=== PATIENT | female | born 1965 | race Hispanic/Latino ===

== ENCOUNTER 2017-10-17 20:50 | Emergency (ER) | payer MEDICARE ==
[2017-10-17] MEDS ORDERED: ONDANSETRON HCL MDV 20ML 2 MG/ML VIAL ONE (20:59)
[2017-10-17] MEDS ORDERED: SODIUM CHLORIDE 0.9% 1000ML 1,000 ML IV ONE (20:59)
[2017-10-17 21:08] LABS: BASOPHILS % (AUTO) 0.4 % (0.0-5.0); HEMATOCRIT 36.5 % (36-48); LYMPHOCYTES % (AUTO) 38.4 % (21.0-51.0); MEAN CORPUSCULAR HEMOGLOBIN 30.6 pg (27.0-33.0); MEAN CORPUSCULAR HGB CONC 34.8 g/dL (32.0-36.0); MONOCYTES % (AUTO) 7.4 % (3.0-13.0); NEUTROPHILS % (AUTO) 52.8 % (40.0-77.0); PLATELET COUNT (AUTO) 250 K/uL (130-400); RED BLOOD CELL COUNT(AUTO) 4.15 MIL/uL (4.00-5.50); RED CELL DISTRIBUTION WIDTH 13.7 % (11.0-15.5)
[2017-10-17 21:16] LABS: CREATININE 0.7 mg/dL (0.5-1.5); POTASSIUM 3.1 mmol/L (3.5-5.1)
[2017-10-17 21:21] LABS: ALBUMIN 3.7 g/dL (3.5-5.0); BILIRUBIN,TOTAL 0.2 mg/dL (0.2-1.0); TOTAL PROTEIN, SERUM 8.2 g/dL (6.0-8.3)
[2017-10-17 22:05] LABS: BILIRUBIN,URINE Negative (NEGATIVE); COLOR,URINE Yellow (YELLOW); GLUCOSE, URINE (UA) Negative (NEGATIVE); KETONES,URINE Negative (NEGATIVE); LEUKOCYTE ESTERASE ,URINE Trace (NEGATIVE); NITRATE,URINE Negative (NEGATIVE); OCCULT BLOOD,URINE Trace (NEGATIVE); PH,URINE 5.5 (5.0-8.0); PROTEIN,URINE Negative (NEGATIVE); UROBILINOGEN,URINE 0.2 mg/dL (0.2-1.0)
[2017-10-17 22:08] LABS: APPEARANCE,URINE SLIGHTLY CLOUDY (CLEAR)
[2017-10-17 22:17] LABS: BACTERIA,URINE Few /HPF (None Seen); MUCUS,URINE Few LPF (None Seen); SQUAMOUS EPITHELIAL CELL,UR Few /HPF (0-2)
[2017-10-17 22:18] LABS: YEAST,URINE BUDDING Rare /HPF (None Seen)
== END 2017-10-17 22:42 | disposition home or self-care (01) ==
LOC: EDH 20:50
DX: A08.4 Viral intestinal infection, unspecified (principal)
CPT/HCPCS: 36415; 74176; 80053; 81001; 85025; 96361; 96374; 99285; J7030

== ENCOUNTER 2018-11-17 00:12 | Emergency (ER) | payer MEDICARE ==
[2018-11-17 01:21] LABS: BASOPHILS % (AUTO) 0.3 % (0.0-5.0); EOSINOPHILS % (AUTO) 1.2 % (0.0-8.0); HEMATOCRIT 37.2 % (36-48); LYMPHOCYTES % (AUTO) 32.7 % (21.0-51.0); MEAN CORPUSCULAR HEMOGLOBIN 30.2 pg (27.0-33.0); MEAN CORPUSCULAR HGB CONC 33.7 g/dL (32.0-36.0); MEAN CORPUSCULAR VOLUME 89.6 fL (79-99); MONOCYTES % (AUTO) 6.8 % (3.0-13.0); NUCLEATED RED BLOOD CELLS 0.1 % (0.0-0.19); PLATELET COUNT (AUTO) 205 K/uL (130-400); RED BLOOD CELL COUNT(AUTO) 4.16 MIL/uL (4.00-5.50); RED CELL DISTRIBUTION WIDTH 13.9 % (11.0-15.5); WHITE BLOOD COUNT (AUTO) 7.7 K/uL (4.8-10.8)
[2018-11-17 01:29] LABS: CREATININE 0.8 mg/dL (0.5-1.5); POTASSIUM 3.6 mmol/L (3.5-5.1)
[2018-11-17 01:34] LABS: ALBUMIN 3.8 g/dL (3.5-5.0); BILIRUBIN,TOTAL 0.2 mg/dL (0.2-1.0); TOTAL PROTEIN, SERUM 7.5 g/dL (6.0-8.3)
[2018-11-17 01:34] LABS: APPEARANCE,URINE Turbid (CLEAR); BILIRUBIN,URINE Negative (NEGATIVE); COLOR,URINE Yellow (YELLOW); GLUCOSE, URINE (UA) Negative (NEGATIVE); KETONES,URINE Negative (NEGATIVE); LEUKOCYTE ESTERASE ,URINE Small (NEGATIVE); NITRATE,URINE Negative (NEGATIVE); OCCULT BLOOD,URINE Nonhemolyzed Trace (NEGATIVE); PROTEIN,URINE Trace mg/dL (NEGATIVE); UROBILINOGEN,URINE 0.2 mg/dL (0.2-1.0)
[2018-11-17] MEDS ORDERED: KETOROLAC TROMETHAMINE 30MG/ML ONE (01:37)
[2018-11-17 01:38] LABS: INR 0.96 (0.85-1.15); PARTIAL THROMBOPLASTIN TIME 25.4 SEC (26.3-35.5); PROTHROMBIN TIME 10.1 SEC (9.6-11.6)
[2018-11-17] MEDS ORDERED: CYCLOBENZAPRINE HCL 10 MG TABLET ONE (01:38)
[2018-11-17 01:44] LABS: AMPHET/METH SCREEN,URINE NEGATIVE (NEGATIVE); BARBITURATE SCREEN, URINE NEGATIVE (NEGATIVE); BENZODIAZEPINES SCREEN,URINE POSITIVE (NEGATIVE); CANNABINOID SCREEN,URINE POSITIVE (NEGATIVE); COCAINE SCREEN,URINE NEGATIVE (NEGATIVE); OPIATE SCREEN,URINE NEGATIVE (NEGATIVE); PHENCYCLIDINE SCREEN,URINE NEGATIVE (NEGATIVE)
[2018-11-17 01:52] LABS: BACTERIA,URINE Moderate /HPF (None Seen); SQUAMOUS EPITHELIAL CELL,UR Few /HPF (0-2); YEAST,URINE BUDDING Moderate /HPF (None Seen)
== END 2018-11-17 02:56 | disposition home or self-care (01) ==
LOC: EDH 00:12
DX: M62.838 Other muscle spasm (principal); M54.2 Cervicalgia; F12.10 Cannabis abuse, uncomplicated; F41.9 Anxiety disorder, unspecified; F32.9 Major depressive disorder, single episode, unspecified
CPT/HCPCS: 36415; 71045; 72125; 80053; 80305; 81001; 82550; 85025; 85610; 85730; 93005; 96374; 99285; J1885

== ENCOUNTER 2019-05-28 12:37 | Emergency (ER) | payer MEDICARE ==
[2019-05-28] MEDS ORDERED: ONDANSETRON HCL 4 MG/2 ML VIAL ONE (12:56)
[2019-05-28] MEDS ORDERED: KETOROLAC TROMETHAMINE 30MG/ML ONE (12:56)
[2019-05-28] MEDS ORDERED: METHYLPREDNISOLONE SOD SUCC 125MG/2ML VIAL ONE (12:56)
[2019-05-28] MEDS ORDERED: DiphenhydrAMINE HCL 50 MG/ML VIAL ONE (12:56)
[2019-05-28] MEDS ORDERED: SODIUM CHLORIDE 0.9% 1000ML 1,000 ML IV ONE (12:57)
[2019-05-28] MEDS ORDERED: PROCHLORPERAZINE EDISYLATE 10 MG/2 ML VIAL ONE (13:10)
== END 2019-05-28 14:47 | disposition home or self-care (01) ==
LOC: EDH 12:37
DX: R51 Headache (principal); F32.9 Major depressive disorder, single episode, unspecified; F41.9 Anxiety disorder, unspecified; Z79.899 Other long term (current) drug therapy
CPT/HCPCS: 96374; 96375; 99284; J0780; J1200; J1885; J2405; J2930; J7030

== ENCOUNTER 2019-07-31 20:12 | Emergency (ER) | payer OTHER, MEDICARE ==
[2019-07-31 20:35] LABS: BASOPHILS % (AUTO) 0.4 % (0.0-5.0); EOSINOPHILS % (AUTO) 0.6 % (0.0-8.0); LYMPHOCYTES % (AUTO) 37.1 % (21.0-51.0); MEAN CORPUSCULAR HEMOGLOBIN 29.3 pg (27.0-33.0); MEAN CORPUSCULAR HGB CONC 32.9 g/dL (32.0-36.0); MEAN CORPUSCULAR VOLUME 89.2 fL (79-99); MONOCYTES % (AUTO) 7.3 % (3.0-13.0); NEUTROPHILS % (AUTO) 54.3 % (40.0-77.0); PLATELET COUNT (AUTO) 212 K/uL (130-400); RED BLOOD CELL COUNT(AUTO) 4.26 MIL/uL (4.00-5.50); RED CELL DISTRIBUTION WIDTH 13.3 % (11.0-15.5); WHITE BLOOD COUNT (AUTO) 10.2 K/uL (4.8-10.8)
[2019-07-31] MEDS ORDERED: ACETAMINOPHEN EXTRA STRENGTH 500 MG TABLET ONE (20:41)
[2019-07-31 20:54] LABS: CREATININE 0.6 mg/dL (0.5-1.5); POTASSIUM 3.7 mmol/L (3.5-5.1)
[2019-07-31 20:55] LABS: INR 0.99 (0.85-1.15); PARTIAL THROMBOPLASTIN TIME 21.8 SEC (26.3-35.5); PROTHROMBIN TIME 10.4 SEC (9.6-11.6)
[2019-07-31 20:58] LABS: BILIRUBIN,TOTAL 0.3 mg/dL (0.2-1.0); TOTAL PROTEIN, SERUM 7.7 g/dL (6.0-8.3)
[2019-07-31 22:04] LABS: APPEARANCE,URINE Clear (CLEAR); BILIRUBIN,URINE Negative (NEGATIVE); COLOR,URINE Yellow (YELLOW); GLUCOSE, URINE (UA) Negative (NEGATIVE); KETONES,URINE Negative (NEGATIVE); LEUKOCYTE ESTERASE ,URINE Small (NEGATIVE); NITRATE,URINE Negative (NEGATIVE); OCCULT BLOOD,URINE Negative (NEGATIVE); PROTEIN,URINE Negative (NEGATIVE); UROBILINOGEN,URINE 0.2 mg/dL (0.2-1.0)
[2019-07-31 22:10] LABS: AMPHET/METH SCREEN,URINE NEGATIVE (NEGATIVE); BARBITURATE SCREEN, URINE NEGATIVE (NEGATIVE); BENZODIAZEPINES SCREEN,URINE POSITIVE (NEGATIVE); CANNABINOID SCREEN,URINE POSITIVE (NEGATIVE); COCAINE SCREEN,URINE NEGATIVE (NEGATIVE); OPIATE SCREEN,URINE NEGATIVE (NEGATIVE); PHENCYCLIDINE SCREEN,URINE NEGATIVE (NEGATIVE)
[2019-07-31 22:23] LABS: BACTERIA,URINE Few /HPF (None Seen); RBC,URINE None Seen /HPF (0-1)
== END 2019-07-31 23:23 | disposition home or self-care (01) ==
LOC: EDH 20:12
DX: G44.209 Tension-type headache, unspecified, not intractable (principal); R03.0 Elevated blood-pressure reading, without diagnosis of hypertension; F41.9 Anxiety disorder, unspecified; F32.9 Major depressive disorder, single episode, unspecified; G43.909 Migraine, unspecified, not intractable, without status migrainosus; Z87.891 Personal history of nicotine dependence; Z88.6 Allergy status to analgesic agent; Z88.2 Allergy status to sulfonamides
CPT/HCPCS: 36415; 80053; 80305; 81001; 82550; 83690; 84484; 85025; 85610; 85730; 93005

== ENCOUNTER 2019-11-24 23:28 | Observation (INO) | payer OTHER, MEDICARE ==
[~2019-11-24] VITALS: Ht 152.4 cm; Wt 57.0 kg
[2019-11-25] VITALS (7 sets, daily range): BP systolic 108–123; BP diastolic 56–74
[2019-11-25 00:05] LABS: BASOPHILS % (AUTO) 0.3 % (0.0-5.0); EOSINOPHILS % (AUTO) 1.5 % (0.0-8.0); LYMPHOCYTES % (AUTO) 45.2 % (21.0-51.0); MEAN CORPUSCULAR HEMOGLOBIN 29.3 pg (27.0-33.0); MEAN CORPUSCULAR HGB CONC 33.1 g/dL (32.0-36.0); MEAN CORPUSCULAR VOLUME 88.4 fL (79-99); MONOCYTES % (AUTO) 7.9 % (3.0-13.0); NEUTROPHILS % (AUTO) 44.8 % (40.0-77.0); PLATELET COUNT (AUTO) 200 K/uL (130-400); RED BLOOD CELL COUNT(AUTO) 3.96 MIL/uL (4.00-5.50); RED CELL DISTRIBUTION WIDTH 12.9 % (11.0-15.5); WHITE BLOOD COUNT (AUTO) 7.8 K/uL (4.8-10.8)
[2019-11-25 00:15] LABS: CREATININE 0.8 mg/dL (0.5-1.5); POTASSIUM 3.3 mmol/L (3.5-5.1)
[2019-11-25] MEDS ORDERED: ASPIRIN 325 MG TABLET ONE (00:35)
[2019-11-25] MEDS ORDERED: NITROGLYCERIN 1GM/1 INCH PACKET TD ONE (00:36)
[2019-11-25] MEDS ORDERED: MORPHINE SULFATE 2 MG/ML 1ML SYG IV PRN (02:15)
[2019-11-25] MEDS ORDERED: ACETAMINOPHEN 325 MG TAB PO PRN (02:15)
[2019-11-25] MEDS ORDERED: ONDANSETRON HCL 4 MG/2 ML VIAL IV PRN (02:15)
[2019-11-25] MEDS: NITROGLYCERIN 1GM/1 INCH PACKET TD SCH ×4 (03:00→18:30)
[2019-11-25] MEDS ORDERED: POTASSIUM CHLORIDE 20 MEQ ERTAB PO ONE (03:13)
[2019-11-25] MEDS ORDERED: POTASSIUM CHLORIDE 20MEQ/100ML 100 ML IV PRN (03:45)
[2019-11-25] MEDS ORDERED: MAGNESIUM 2GM PREMIX 50ML 50 ML IV PRN (03:45)
[2019-11-25] MEDS ORDERED: POTASSIUM CHLORIDE 20 MEQ ERTAB PO PRN (03:45)
[2019-11-25] MEDS ORDERED: POTASSIUM CHLORIDE 10% ELIXIR 20 MEQ/15 ML UDCUP PO PRN (03:45)
[2019-11-25] MEDS ORDERED: LIDOCAINE HCL-MPF 1% 2ML VIAL IV PRN (03:45)
[2019-11-25] MEDS ORDERED: ACETAMINOPHEN 325 MG TAB ONE (04:25)
[2019-11-25 06:42] LABS: HEMOGLOBIN A1C 5.7 % (4.0-6.0)
[2019-11-25 06:51] LABS: INR 0.93 (0.85-1.15); PARTIAL THROMBOPLASTIN TIME 24.8 SEC (26.3-35.5); PROTHROMBIN TIME 10.1 SEC (9.6-11.6)
[2019-11-25 06:59] LABS: ALBUMIN 3.5 g/dL (3.5-5.0); BILIRUBIN,TOTAL 0.2 mg/dL (0.2-1.0); CREATININE 0.7 mg/dL (0.5-1.5); MAGNESIUM 2.1 mg/dL (1.80-2.40); POTASSIUM 3.6 mmol/L (3.5-5.1); THYROID STIMULATING HORMONE 3.16 uIU/mL (0.36-3.74); TOTAL PROTEIN, SERUM 6.9 g/dL (6.0-8.3)
--- NOTE | 2019-11-25 10:00 | NUR ---
SHERWIN SPOKE WITH DR. COURTNEY ORDERED A 2 D-ECHO TO BE READ BY DR. COURTNEY
[2019-11-25] MEDS: ASPIRIN 81 MG EC TAB PO SCH (10:13)
[2019-11-25] MEDS: ACETAMINOPHEN 325 MG TAB PO PRN (10:13)
[2019-11-25] MEDS: FAMOTIDINE/PF 20 MG/2 ML VIAL IV SCH ×2 (10:13→22:40)
[2019-11-25] MEDS ORDERED: VITAMIN D PO (12:10)
[2019-11-25] MEDS ORDERED: ALPR-411 PO (12:10)
[2019-11-25] MEDS ORDERED: LOSA25TA41 PO (12:10)
[2019-11-25] MEDS ORDERED: TRAM50TA4 PO (12:10)
[2019-11-25] MEDS ORDERED: CITA20TA17 PO (12:10)
[2019-11-25] MEDS: KETOROLAC TROMETHAMINE 15MG/ML IV SCH (12:56)
--- NOTE | 2019-11-25 17:10 | NUR ---
SHERWIN COURTNEY CAME TO SPEAK TO PT. AT BEDSIDE, LEXISC[place] ORDERED IF NORMAL PER DR COURTNEY PT. CAN D/C HOME
--- NOTE | 2019-11-25 20:15 | NUR ---
NOTE PATIENT STATES THAT SHE DOES NOT WANT FOR INFORMATION TO BE GIVEN TO ANYONE CALLING ASKING ABOUT HER EXCEPT FOR HER SPOUSE [employer].
[2019-11-26] MEDS: NITROGLYCERIN 1GM/1 INCH PACKET TD SCH ×2 (01:41→11:47)
[2019-11-26 03:43] VITALS: BP 110/57
[2019-11-26 07:56] VITALS: BP 122/64
[2019-11-26] MEDS ORDERED: LIDOCAINE 5% TOPICAL PATCH TP SCH (09:00)
[2019-11-26] MEDS ORDERED: REGADENOSON 0.4 MG/5 ML PF SYG IVP SCH (10:15)
[2019-11-26] MEDS: ASPIRIN 81 MG EC TAB PO SCH (11:47)
[2019-11-26] MEDS: FAMOTIDINE/PF 20 MG/2 ML VIAL IV SCH (11:47)
[2019-11-26] MEDS: ACETAMINOPHEN 325 MG TAB PO PRN (11:54)
[2019-11-26 12:01] VITALS: BP 163/79
[2019-11-26] MEDS: KETOROLAC TROMETHAMINE 15MG/ML IV SCH (12:45)
--- NOTE | 2019-11-26 15:13 | NUR ---
RECEIVED CALL FROM DR. COURTNEY, STATED STRESS TEST IS NORMAL, NO CHANGES TO MEDICATION, CAN BE DISCHARGED FROM [facility] AND FOLLOW UP IN OFFICE IN ONE WEEK
--- NOTE | 2019-11-26 15:14 | NUR ---
DR. ARCE MADE AWARE OF ORDERS PER DR. COURTNEY. PATIENT WILL BE DISCHARGED HOME TODAY PER DR. ARCE
[2019-11-26 16:33] VITALS: BP 135/86
--- NOTE | 2019-11-26 16:49 | NUR ---
DISCHARGE INSTRUCTIONS GIVEN TO PATIENT. MADE AWARE OF FOLLOW UP APPOINTMENT WITH DR. COURTNEY DECEMBER 04 AT 1100. MADE AWARE TO FOLLOW UP WITH PCP IN ONE WEEK. INSTRUCTED TO CONTINUE ALL HOME MEDICATIONS ORDERED. PATIENT AT THIS TIME DENIES CHEST PAIN. DENIES SHORTNESS OF BREATH. IV TO RIGHT HAND REMOVED, TELE REMOVED. LIDOCAINE PATCH AND NITRO PATCH REMOVED. PATIENT STATED HER WILL BE PICKING HER UP
== END 2019-11-26 17:45 | disposition home or self-care (01) ==
LOC: EDH 23:28 → EDHIP 11-25 02:07 → INTOOBSV 11-25 02:07 → 3CH 11-25 04:11
PROVIDERS: ADMIT Internal Medicine; ATTEND Internal Medicine
DX: R07.2 Precordial pain (principal); F41.9 Anxiety disorder, unspecified; I10 Essential (primary) hypertension; F32.9 Major depressive disorder, single episode, unspecified; G43.909 Migraine, unspecified, not intractable, without status migrainosus; Z90.49 Acquired absence of other specified parts of digestive tract
CPT/HCPCS: 36415 ×2; 71045; 78452; 80048; 80053; 80061; 83036; 83735; 84443; 84484 ×4; 85025; 85610; 85730; 93005; 93017; 93306; 93356; 96374; 96375; 96376 ×2; 99291; A9500 ×2; G0378 ×23; J1885; J2785; J3490 ×3

== ENCOUNTER 2020-01-15 19:43 | Emergency (ER) | payer OTHER, MEDICARE ==
[~2020-01-15 19:43] MED LIST: ALPR-411 PO; CITA20TA17 PO; LOSA25TA41 PO; TRAM50TA4 PO; VITAMIN D PO
[2020-01-15] MEDS ORDERED: SODIUM CHLORIDE 0.9% 1000ML 1,000 ML IV ONE (19:44)
[2020-01-15] MEDS ORDERED: MECLIZINE HCL 25 MG TABLET ONE (20:09)
[2020-01-15 20:26] LABS: BASOPHILS % (AUTO) 0.4 % (0.0-5.0); EOSINOPHILS % (AUTO) 1.2 % (0.0-8.0); HEMATOCRIT 36.5 % (36-48); LYMPHOCYTES % (AUTO) 38.5 % (21.0-51.0); MEAN CORPUSCULAR HEMOGLOBIN 29.7 pg (27.0-33.0); MEAN CORPUSCULAR HGB CONC 33.7 g/dL (32.0-36.0); MEAN CORPUSCULAR VOLUME 88.2 fL (79-99); MONOCYTES % (AUTO) 8.4 % (3.0-13.0); NEUTROPHILS % (AUTO) 51.3 % (40.0-77.0); PLATELET COUNT (AUTO) 219 K/uL (130-400); RED BLOOD CELL COUNT(AUTO) 4.14 MIL/uL (4.00-5.50); RED CELL DISTRIBUTION WIDTH 12.7 % (11.0-15.5)
[2020-01-15 20:38] LABS: CREATININE 0.8 mg/dL (0.5-1.5); POTASSIUM 3.7 mmol/L (3.5-5.1)
[2020-01-15 20:43] LABS: ALBUMIN 3.7 g/dL (3.5-5.0); BILIRUBIN,TOTAL 0.2 mg/dL (0.2-1.0); TOTAL PROTEIN, SERUM 7.7 g/dL (6.0-8.3)
[2020-01-15 20:49] LABS: APPEARANCE,URINE Clear (CLEAR); BILIRUBIN,URINE Negative (NEGATIVE); COLOR,URINE Yellow (YELLOW); GLUCOSE, URINE (UA) Negative (NEGATIVE); KETONES,URINE Negative (NEGATIVE); LEUKOCYTE ESTERASE ,URINE Negative (NEGATIVE); NITRATE,URINE Negative (NEGATIVE); OCCULT BLOOD,URINE Negative (NEGATIVE); PH,URINE 6.5 (5.0-8.0); PROTEIN,URINE Negative (NEGATIVE); UROBILINOGEN,URINE 0.2 mg/dL (0.2-1.0)
[2020-01-15 20:56] LABS: AMPHET/METH SCREEN,URINE NEGATIVE (NEGATIVE); BARBITURATE SCREEN, URINE NEGATIVE (NEGATIVE); BENZODIAZEPINES SCREEN,URINE POSITIVE (NEGATIVE); CANNABINOID SCREEN,URINE NEGATIVE (NEGATIVE); COCAINE SCREEN,URINE NEGATIVE (NEGATIVE); OPIATE SCREEN,URINE NEGATIVE (NEGATIVE); PHENCYCLIDINE SCREEN,URINE NEGATIVE (NEGATIVE)
== END 2020-01-15 22:04 | disposition home or self-care (01) ==
LOC: EDH 19:43
DX: H81.10 Benign paroxysmal vertigo, unspecified ear (principal); F41.9 Anxiety disorder, unspecified; F32.9 Major depressive disorder, single episode, unspecified; I10 Essential (primary) hypertension; G43.909 Migraine, unspecified, not intractable, without status migrainosus
CPT/HCPCS: 36415; 70450; 80053; 80305; 81003; 84484; 85025; 93005; 96360; 99285; J7030

== ENCOUNTER 2020-06-11 08:50 | Emergency (ER) | payer OTHER, MEDICARE ==
[2020-06-11 09:11] LABS: BASOPHILS % (AUTO) 0.4 % (0.0-5.0); EOSINOPHILS % (AUTO) 1.5 % (0.0-8.0); HEMATOCRIT 39.2 % (36-48); LYMPHOCYTES % (AUTO) 41.5 % (21.0-51.0); MEAN CORPUSCULAR HEMOGLOBIN 29.7 pg (27.0-33.0); MEAN CORPUSCULAR HGB CONC 33.4 g/dL (32.0-36.0); MEAN CORPUSCULAR VOLUME 88.9 fL (79-99); MONOCYTES % (AUTO) 6.6 % (3.0-13.0); NEUTROPHILS % (AUTO) 49.7 % (40.0-77.0); PLATELET COUNT (AUTO) 242 K/uL (130-400); RED BLOOD CELL COUNT(AUTO) 4.41 MIL/uL (4.00-5.50); RED CELL DISTRIBUTION WIDTH 12.9 % (11.0-15.5); WHITE BLOOD COUNT (AUTO) 7.3 K/uL (4.8-10.8)
[2020-06-11 09:18] LABS: CREATININE 0.7 mg/dL (0.5-1.5); POTASSIUM 3.8 mmol/L (3.5-5.1)
[2020-06-11 09:29] LABS: BILIRUBIN,TOTAL 0.1 mg/dL (0.2-1.0); TOTAL PROTEIN, SERUM 8.3 g/dL (6.0-8.3)
[2020-06-11] MEDS ORDERED: ACETAMINOPHEN EXTRA STRENGTH 500 MG TABLET ONE (10:11)
[2020-06-11] MEDS ORDERED: MECLIZINE HCL 25 MG TABLET ONE (10:26)
[2020-06-11 10:27] LABS: APPEARANCE,URINE Clear (CLEAR); BILIRUBIN,URINE Negative (NEGATIVE); COLOR,URINE Yellow (YELLOW); GLUCOSE, URINE (UA) Negative (NEGATIVE); KETONES,URINE Negative (NEGATIVE); LEUKOCYTE ESTERASE ,URINE Trace (NEGATIVE); NITRATE,URINE Negative (NEGATIVE); OCCULT BLOOD,URINE Negative (NEGATIVE); PROTEIN,URINE Negative (NEGATIVE); UROBILINOGEN,URINE 0.2 mg/dL (0.2-1.0)
[2020-06-11 10:34] LABS: AMPHET/METH SCREEN,URINE NEGATIVE (NEGATIVE); BARBITURATE SCREEN, URINE NEGATIVE (NEGATIVE); BENZODIAZEPINES SCREEN,URINE POSITIVE (NEGATIVE); CANNABINOID SCREEN,URINE NEGATIVE (NEGATIVE); COCAINE SCREEN,URINE NEGATIVE (NEGATIVE); OPIATE SCREEN,URINE NEGATIVE (NEGATIVE); PHENCYCLIDINE SCREEN,URINE NEGATIVE (NEGATIVE)
[2020-06-11 10:50] LABS: BACTERIA,URINE Few /HPF (None Seen); RBC,URINE None Seen /HPF (0-1)
== END 2020-06-11 11:46 | disposition home or self-care (01) ==
LOC: EDH 08:50
DX: R07.89 Other chest pain (principal); G43.909 Migraine, unspecified, not intractable, without status migrainosus; H83.09 Labyrinthitis, unspecified ear; F32.9 Major depressive disorder, single episode, unspecified; F41.9 Anxiety disorder, unspecified; I10 Essential (primary) hypertension
CPT/HCPCS: 36415; 71045; 80053; 80305; 81001; 82550; 83690; 84484; 85025; 93005

== ENCOUNTER 2020-10-31 22:32 | Emergency (ER) | payer OTHER, MEDICARE ==
[2020-10-31] MEDS ORDERED: KETOROLAC TROMETHAMINE 15MG/ML ONE (23:08)
[2020-10-31] MEDS ORDERED: METHYLPREDNISOLONE SOD SUCC 125MG/2ML VIAL ONE (23:08)
[2020-10-31] MEDS ORDERED: HYDROMORPHONE HCL 0.5 MG/0.5 ML ML ONE (23:09)
== END 2020-11-01 01:14 | disposition home or self-care (01) ==
LOC: EDH 22:32
DX: M75.51 Bursitis of right shoulder (principal); F41.9 Anxiety disorder, unspecified; F32.9 Major depressive disorder, single episode, unspecified; I10 Essential (primary) hypertension; G43.909 Migraine, unspecified, not intractable, without status migrainosus
CPT/HCPCS: 73030; 96374; 96375; 99284; J1170; J1885; J2930

== ENCOUNTER 2022-01-30 19:42 | Emergency (ER) | payer OTHER, MEDICARE ==
[~2022-01-30 19:42] MED LIST changes: +POTA-187 PO
[2022-01-30 20:53] LABS: APPEARANCE,URINE Clear (CLEAR); BILIRUBIN,URINE Negative (NEGATIVE); COLOR,URINE Yellow (YELLOW); GLUCOSE, URINE (UA) Negative (NEGATIVE); KETONES,URINE Negative (NEGATIVE); LEUKOCYTE ESTERASE ,URINE Negative (NEGATIVE); NITRATE,URINE Negative (NEGATIVE); OCCULT BLOOD,URINE Negative (NEGATIVE); PROTEIN,URINE Negative (NEGATIVE); UROBILINOGEN,URINE 0.2 mg/dL (0.2-1.0)
[2022-01-30] MEDS ORDERED: ACETAMINOPHEN 500 MG TABLET ONE (20:56)
[2022-01-30 20:57] LABS: BASOPHILS % (AUTO) 0.4 % (0.0-5.0); EOSINOPHILS % (AUTO) 1.2 % (0.0-8.0); HEMATOCRIT 38.9 % (36-48); LYMPHOCYTES % (AUTO) 32.4 % (21.0-51.0); MEAN CORPUSCULAR HEMOGLOBIN 29.3 pg (27.0-33.0); MEAN CORPUSCULAR HGB CONC 32.6 g/dL (32.0-36.0); MEAN CORPUSCULAR VOLUME 89.6 fL (79-99); MONOCYTES % (AUTO) 8.7 % (3.0-13.0); NEUTROPHILS % (AUTO) 56.8 % (40.0-77.0); PLATELET COUNT (AUTO) 220 K/uL (130-400); RED BLOOD CELL COUNT(AUTO) 4.34 MIL/uL (4.00-5.50); RED CELL DISTRIBUTION WIDTH 13.2 % (11.0-15.5); WHITE BLOOD COUNT (AUTO) 9.4 K/uL (4.8-10.8)
[2022-01-30 21:09] LABS: CREATININE 0.7 mg/dL (0.5-1.5); POTASSIUM 3.3 mmol/L (3.5-5.1)
[2022-01-30 21:16] LABS: ALBUMIN 3.8 g/dL (3.5-5.0); BILIRUBIN,TOTAL 0.2 mg/dL (0.2-1.0); TOTAL PROTEIN, SERUM 7.8 g/dL (6.0-8.3)
[2022-01-30 21:23] LABS: B-TYPE NATRIURETIC PEPTIDE 6 pg/mL (0-100)
[2022-01-30] MEDS ORDERED: IOHEXOL 350 MG/ML 100ML INFUS..BTL IV ONE (22:28)
[2022-01-30] MEDS ORDERED: IBUP-1493 PO (23:10)
[2022-01-30 23:23] VITALS: BP 132/74
== END 2022-01-30 23:38 | disposition home or self-care (01) ==
LOC: EDH 19:42
DX: R51.9 Headache, unspecified (principal); R07.89 Other chest pain; M54.2 Cervicalgia; F41.9 Anxiety disorder, unspecified; I10 Essential (primary) hypertension; Z79.899 Other long term (current) drug therapy; Z90.49 Acquired absence of other specified parts of digestive tract
CPT/HCPCS: 99285; 71275; 71045; 84484; 80053; 83880; 85025; 85378; 81003; 36415; 93005; Q9967

== ENCOUNTER 2022-07-02 21:16 | Emergency (ER) | payer OTHER, MEDICARE ==
[~2022-07-02] VITALS: Ht 152.4 cm; Wt 55.8 kg
[~2022-07-02 21:16] MED LIST changes: +IBUP-1493 PO
[2022-07-02] MEDS ORDERED: ALPRAZOLAM 1 MG TAB PO ONE (23:00)
[2022-07-02 23:11] VITALS: BP 127/72
== END 2022-07-02 23:29 | disposition home or self-care (01) ==
LOC: EDH 21:16
DX: F41.9 Anxiety disorder, unspecified (principal); I10 Essential (primary) hypertension; Z79.1 Long term (current) use of non-steroidal anti-inflammatories (NSAID); Z79.899 Other long term (current) drug therapy

== ENCOUNTER 2022-12-23 18:58 | Emergency (ER) | payer MEDICARE ==
[~2022-12-23] VITALS: Ht 152.4 cm; Wt 55.3 kg
[2022-12-23] MEDS ORDERED: ONDANSETRON 4MG INJ IVP ONE ×2 (19:30→23:30)
[2022-12-23] MEDS ORDERED: LACTATED RINGERS 1000ML 1,000 ML IV ONE (19:30)
[2022-12-23 19:31] LABS: BASOPHILS % (AUTO) 0.2 % (0.0-5.0); EOSINOPHILS % (AUTO) 0.2 % (0.0-8.0); HEMATOCRIT 39.7 % (36-48); LYMPHOCYTES % (AUTO) 26.1 % (21.0-51.0); MEAN CORPUSCULAR HEMOGLOBIN 28.9 pg (27.0-33.0); MEAN CORPUSCULAR HGB CONC 33.5 g/dL (32.0-36.0); MEAN CORPUSCULAR VOLUME 86.1 fL (79-99); MONOCYTES % (AUTO) 12.5 % (3.0-13.0); NEUTROPHILS % (AUTO) 60.8 % (40.0-77.0); PLATELET COUNT (AUTO) 207 K/uL (130-400); RED BLOOD CELL COUNT(AUTO) 4.61 MIL/uL (4.00-5.50); RED CELL DISTRIBUTION WIDTH 13.1 % (11.0-15.5); WHITE BLOOD COUNT (AUTO) 5.4 K/uL (4.8-10.8)
[2022-12-23 20:12] LABS: ALANINE AMINOTRANSFERASE 31 U/L (12-78); ALBUMIN 4.4 g/dL (3.5-5.0); ASPARTATE AMINOTRANSFERASE 20 U/L (10-37); CARBON DIOXIDE 27 mmol/L (21-32); CHLORIDE 104 mmol/L (101-111); CREATININE 0.7 mg/dL (0.5-1.5); GLOMERULAR FILTR. RATE CALC 101 mL/min (>90); GLUCOSE,RANDOM 111 mg/dL (70-105); LIPASE < 50 U/L (114-286); POTASSIUM 2.8 mmol/L (3.5-5.1); SODIUM SERUM 141 mmol/L (136-145); TOTAL PROTEIN, SERUM 8.2 g/dL (6.0-8.3); UREA NITROGEN, BLOOD 14 mg/dL (7-18)
[2022-12-23] MEDS ORDERED: MORPHINE 2 MG SYG IVP ONE (21:00)
[2022-12-23] MEDS ORDERED: KCL 20 MEQ ERTAB PO ONE (21:00)
[2022-12-23] MEDS ORDERED: LORAZEPAM 2 MG/ML 1 ML VIAL IVP ONE (23:30)
[2022-12-23] MEDS ORDERED: FAMOTIDINE 20MG VIAL IV ONE (23:30)
[2022-12-24 00:59] VITALS: BP 131/60
[2022-12-24] MEDS ORDERED: DIPH1TAB PO (01:31)
[2022-12-24] MEDS ORDERED: ONDA4TAB10 PO (01:31)
[2022-12-24] MEDS ORDERED: FAMO-136 PO (01:31)
== END 2022-12-24 01:45 | disposition home or self-care (01) ==
LOC: EDH 18:58
DX: K52.9 Noninfective gastroenteritis and colitis, unspecified (principal); E86.0 Dehydration; E87.6 Hypokalemia; F41.9 Anxiety disorder, unspecified; I10 Essential (primary) hypertension; Z79.899 Other long term (current) drug therapy; Z98.890 Other specified postprocedural states
CPT/HCPCS: 99284; 96361; 96374; 96375; 84484; 80053; 83690; 85025; 83605; 36415; 96376; 93005; J7120; J3490; J2270; J2405; J2060

== ENCOUNTER 2023-11-07 02:41 | Emergency (ER) | payer OTHER, MEDICARE ==
[~2023-11-07 02:41] MED LIST changes: +FAMO-136 PO; +ONDA4TAB10 PO
[2023-11-07 03:27] LABS: BASOPHILS # (AUTO) 0.04 K/uL (0.00-0.20); BASOPHILS % (AUTO) 0.4 % (0.0-5.0); HEMATOCRIT 37.9 % (36-48); IMMATURE GRANULOCYTE ABSOLUTE 0.04 K/uL (0-1); LYMPHOCYTES # (AUTO) 3.7 K/uL (1.0-4.8); MEAN CORPUSCULAR HGB CONC 33.8 g/dL (32.0-36.0); MEAN CORPUSCULAR VOLUME 88.8 fL (79-99); MONOCYTES # (AUTO) 0.9 K/uL (0.1-1.0); MONOCYTES % (AUTO) 8.9 % (3.0-13.0); NEUTROPHILS % (AUTO) 51.3 % (40.0-77.0); PLATELET COUNT (AUTO) 239 K/uL (130-400); RED BLOOD CELL COUNT(AUTO) 4.27 MIL/uL (4.00-5.50); RED CELL DISTRIBUTION WIDTH 13.1 % (11.0-15.5); WHITE BLOOD COUNT (AUTO) 9.8 K/uL (4.8-10.8)
[2023-11-07 03:40] LABS: INR <= 0.93 (0.85-1.15); PROTHROMBIN TIME 10.1 SEC (9.6-11.6)
[2023-11-07 03:46] LABS: ALBUMIN 3.7 g/dL (3.5-5.0); BILIRUBIN,TOTAL 0.1 mg/dL (0.2-1.0); CREATININE 0.7 mg/dL (0.5-1.0); MAGNESIUM 2.3 mg/dL (1.80-2.40); TOTAL PROTEIN, SERUM 7.7 g/dL (6.0-8.3)
[2023-11-07 03:56] LABS: B-TYPE NATRIURETIC PEPTIDE 6 pg/mL (0-100)
[2023-11-07] MEDS: POTASSIUM BICARB/CIT AC 25 MEQ TABLET.EFF PO ONE ×2 (04:55→04:59)
[2023-11-07 04:59] LABS: APPEARANCE,URINE CLEAR (CLEAR); BILIRUBIN,URINE NEGATIVE (NEGATIVE); COLOR,URINE LIGHT-YELLOW (YELLOW); GLUCOSE, URINE (UA) NEGATIVE (NEGATIVE); KETONES,URINE NEGATIVE (NEGATIVE); LEUKOCYTE ESTERASE ,URINE NEGATIVE Leu/uL (NEGATIVE); NITRATE,URINE NEGATIVE (NEGATIVE); OCCULT BLOOD,URINE SMALL (NEGATIVE); PH,URINE 5.5 (5.0-8.0); PROTEIN,URINE NEGATIVE (NEGATIVE); UROBILINOGEN,URINE 0.2 mg/dL (0.2-1.0)
[2023-11-07] MEDS: POTASSIUM CHLORIDE 20MEQ/10ML 10 MEQ in 0.9%NACL 50ML 50 ML IV SCH (05:00)
[2023-11-07 05:04] LABS: AMPHET/METH SCREEN,URINE NEGATIVE (NEGATIVE); BARBITURATE SCREEN, URINE NEGATIVE (NEGATIVE); BENZODIAZEPINES SCREEN,URINE POSITIVE (NEGATIVE); CANNABINOID SCREEN,URINE POSITIVE (NEGATIVE); COCAINE SCREEN,URINE NEGATIVE (NEGATIVE); OPIATE SCREEN,URINE NEGATIVE (NEGATIVE); PHENCYCLIDINE SCREEN,URINE NEGATIVE (NEGATIVE)
[2023-11-07 05:16] LABS: BACTERIA,URINE RARE /HPF (None Seen); CALCIUM OXALATE CRYSTALS,UR RARE /LPF (None Seen); MUCUS,URINE RARE LPF (None Seen); SQUAMOUS EPITHELIAL CELL,UR MOD /HPF (0-2)
[2023-11-07 05:25] VITALS: BP 148/75; PULSE 65; RESP 17; O2SAT 99
== END 2023-11-07 06:10 | disposition home or self-care (01) ==
LOC: EDH 02:41
DX: E87.6 Hypokalemia (principal); R07.89 Other chest pain; F41.9 Anxiety disorder, unspecified; I10 Essential (primary) hypertension; Z79.1 Long term (current) use of non-steroidal anti-inflammatories (NSAID); Z79.899 Other long term (current) drug therapy
CPT/HCPCS: 36415; 71045; 80053; 80305; 81001; 83735; 83880; 84484; 85025; 85378; 85610; 85730; 93005

== ENCOUNTER 2024-07-10 15:44 | Emergency (ER) | payer OTHER, MEDICARE ==
[~2024-07-10] VITALS: Ht 152.4 cm; Wt 59.9 kg
[~2024-07-10 15:44] MED LIST changes: +ONDA-243 PO; -ONDA4TAB10 PO
[2024-07-10] MEDS: LACTATED RINGERS 1000ML 1,000 ML IV ONE (16:04)
[2024-07-10] MEDS: ondanSETRON 4MG INJ IVP ONE (16:04)
[2024-07-10] MEDS: morPHINE 2 MG SYG IVP ONE (16:04)
[2024-07-10 16:09] VITALS: TEMP 98.2
[2024-07-10 16:13] LABS: BASOPHILS # (AUTO) 0.02 K/uL (0.00-0.20); BASOPHILS % (AUTO) 0.2 % (0.0-5.0); EOSINOPHILS # (AUTO) 0.01 K/uL (0.00-0.70); EOSINOPHILS % (AUTO) 0.1 % (0.0-8.0); HEMATOCRIT 40.5 % (36-48); IMMATURE GRANULOCYTE ABSOLUTE 0.04 K/uL (0-1); LYMPHOCYTES # (AUTO) 2.7 K/uL (1.0-4.8); LYMPHOCYTES % (AUTO) 27.5 % (21.0-51.0); MEAN CORPUSCULAR HGB CONC 33.6 g/dL (32.0-36.0); MEAN CORPUSCULAR VOLUME 89.2 fL (79-99); MONOCYTES # (AUTO) 0.7 K/uL (0.1-1.0); MONOCYTES % (AUTO) 6.6 % (3.0-13.0); NEUTROPHILS # (AUTO) 6.5 K/uL (1.8-7.7); NEUTROPHILS % (AUTO) 65.2 % (40.0-77.0); PLATELET COUNT (AUTO) 230 K/uL (130-400); RED BLOOD CELL COUNT(AUTO) 4.54 MIL/uL (4.00-5.50); RED CELL DISTRIBUTION WIDTH 12.7 % (11.0-15.5); WHITE BLOOD COUNT (AUTO) 9.9 K/uL (4.8-10.8)
[2024-07-10 16:20] LABS: CREATININE 0.7 mg/dL (0.5-1.0); POTASSIUM 3.4 mmol/L (3.5-5.1)
[2024-07-10] MEDS ORDERED: IOHEXOL-350 75 ML VIAL IV ONE (16:30)
--- NOTE | 2024-07-10 16:40 | ERN ---
General Chief Complaint: Nausea,Vomiting,Diarrhea Stated Complaint: NAUSEA Time Seen by MD: 15:52 History of Present Illness Initial Comments 58-year-old female presents for nausea vomiting diarrhea x2 days. Patient reports a generalized abdominal discomfort, 10+ episodes of vomiting and 10+ episodes watery diarrhea over the last 48 hours or so. No fever sore throat cough or congestion. has similar symptoms. Medical history: Hypertension Surgical history: Appendectomy Allergies: Coded Allergies: No Known Allergies (Unverified Allergy, Unknown, 11/25/19) Home Meds Active Scripts Ondansetron (Ondansetron Odt) 4 Mg Tab.rapdis, 4 MG PO TID PRN for NAUSEA, #30 TAB 0 Refills Prov:JASSON DIETRICH MD 12/24/22 Famotidine (Pepcid) 20 Mg Tablet, 20 MG PO DAILY, #15 TAB 0 Refills Prov:JASSON DIETRICH MD 12/24/22 Ibuprofen (Motrin/Advil) 800 Mg Tab, 800 MG PO TID, #30 TAB Prov:CASPER BEAVERS MD 01/30/22 Potassium Chloride (K-Dur/Klor-Con) 10 Meq Ertab, 10 MEQ PO DAILY for 5 Days, #5 TAB.EC Prov:KELLIE MG 12/03/21 Reported Medications Tramadol Hcl (Tramadol HCl) 50 Mg Tablet, 50 MG PO BID, TAB 11/25/19 Citalopram Hydrobromide (Celexa) 20 Mg Tablet, 20 MG PO HS, TAB 11/25/19 [Vitamin D] No Conflict Check, [address] UNIT PO QWEEK 11/25/19 Alprazolam (Alprazolam) 1 Mg Tab.rapdis, 1 MG PO DAILY, TAB 11/25/19 Losartan Potassium (Losartan Potassium) 25 Mg Tablet, 25 MG PO DAILY, TAB 11/25/19 Past Medical History Past Medical History: Hypertension Past Surgical History: Appendectomy Surgical History Other: cataract surgery on October 24, 2022 Family History Family History: Negative Social History Social History: Negative, Lives with family ROS Dictation CONSTITUTIONAL: No chills, no fever, no weakness, no diaphoresis, no malaise. HEAD/FACE: No signs of trauma. EENT: No eye pain, no blurred vision, no tearing, no double vision, no ear pain, no ear discharge, no nose pain, no nasal congestion, no throat pain, no throat swelling, no mouth pain. RESPIRATORY: No cough, no orthopnea, no SOB, no stridor, no wheezing. CARDIOVASCULAR: No chest pain, no edema, no palpitations, no syncope. GASTROINTESTINAL/ABDOMINAL: Generalized abdominal pain, vomiting, diarrhea GENITOURINARY: No abnormal discharge, no dysuria, no frequent urination, no hematuria. No complaints of pain in the genitals. MUSCULOSKELETAL: No back pain, no gout, no joint pain, no joint swelling, no muscle pain, no muscle stiffness, no neck pain. INTEGUMENTARY: No change in color, no change in hair/nails, no dryness, no lesion, no lumps, no rash. NEUROLOGICAL/PSYCH: No anxiety, not depressed, no emotional problem, no headache, no numbness, no pre-existing deficit, no history of seizures, no tremors, no weakness. HEMATOLOGIC/LYMPHATIC: Not anemic, no history of blood clots, no apparent bleeding, no bruising, glands not swollen. All Systems Negative, Except as Noted. Physical Exam Physical Exam Dictation VITAL SIGNS: Reviewed. GENERAL APPEARANCE: Alert, oriented x3, moderate distress due to nausea and abdominal discomfort HEAD AND FACE: Non-traumatic. EYES: PERRL, pink conjunctivas, eyelid no trauma, anterior chamber clear. EARS: Pinnas intact and no signs of trauma or erythema. Ear canals clear and no discharge. TMs no erythema. NOSE: No discharge, no bleeding. OROPHARYNX: Mouth normal, teeth no caries, tongue pink. Pharynx clear, no erythema. Tonsils no exudates, no abscesses noted. Mucous membrane moist. NECK: Supple, non-tender, no thyromegaly, no masses, no JVD, no bruits. BREAST: Deferred. CHEST: No tenderness, no crepitus, no paradoxical movement, no retractions. LUNGS: Clear, well-ventilated, symmetric, no rales, no wheezing, no rhonchi, no stridor, good breath sounds bilaterally. HEART: Regular rate, regular rhythm, no murmur, no gallops. VASCULAR: No peripheral edema. ABDOMEN: Soft, positive bowel sounds, nondistended, no guarding, nontender, no rebound, no masses no hepatomegaly, no splenomegaly, no Carcamo's sign, no hernias. RECTAL: Deferred. GENITAL: Deferred. NEUROLOGICAL: Normal speech, gross motor function intact, gross sensory function intact. MUSCULOSKELETAL: Neck nontender, full range of motion, back nontender, full range of motion. EXTREMITIES: Nontender, full range of motion. SKIN: Color pink, dry, no turgor, no rash, no lacerations, no abrasions, no contusions. LYMPHATICS: Deferred. Results Laboratory and Microbiology Lab and Micro Result Laboratory Tests Test 07/10/24 16:01 White Blood Count 9.9 K/uL (4.8-10.8) Red Blood Count 4.54 MIL/uL (4.00-5.50) Hemoglobin 13.6 g/dL (12.0-16.0) Hematocrit 40.5 % (36-48) Mean Corpuscular Volume 89.2 fL (79-99) Mean Corpuscular Hemoglobin 30.0 pg (27.0-33.0) Mean Corpuscular Hemoglobin Concent 33.6 g/dL (32.0-36.0) Red Cell Distribution Width 12.7 % (11.0-15.5) Platelet Count 230 K/uL (130-400) Mean Platelet Volume 11.0 fL (7.5-10.5) H Immature Granulocyte % (Auto) 0.4 % (0-1) Neutrophils (%) (Auto) 65.2 % (40.0-77.0) Lymphocytes (%) (Auto) 27.5 % (21.0-51.0) Monocytes (%) (Auto) 6.6 % (3.0-13.0) Eosinophils (%) (Auto) 0.1 % (0.0-8.0) Basophils (%) (Auto) 0.2 % (0.0-5.0) Neutrophils # (Auto) 6.5 K/uL (1.8-7.7) Lymphocytes # (Auto) 2.7 K/uL (1.0-4.8) Monocytes # (Auto) 0.7 K/uL (0.1-1.0) Eosinophils # (Auto) 0.01 K/uL (0.00-0.70) Basophils # (Auto) 0.02 K/uL (0.00-0.20) Absolute Immature Granulocyte (auto 0.04 K/uL (0-1) Nucleated Red Blood Cells 0.0 % (0.0-0.19) Sodium Level 138 mmol/L (136-145) Potassium Level 3.4 mmol/L (3.5-5.1) L Chloride Level 103 mmol/L (101-111) Carbon Dioxide Level 26 mmol/L (21-32) Blood Urea Nitrogen 12 mg/dL (7-18) Creatinine 0.7 mg/dL (0.5-1.0) Glomerular Filtration Rate Calc 101 mL/min (>90) Random Glucose 99 mg/dL (70-105) Total Calcium 8.9 mg/dL (8.5-10.1) Total Bilirubin 0.5 mg/dL (0.2-1.0) Direct Bilirubin 0.1 mg/dL (0.0-0.3) Aspartate Amino Transf (AST/SGOT) 13 U/L (10-37) Alanine Aminotransferase (ALT/SGPT) 23 U/L (12-78) Alkaline Phosphatase 95 U/L (50-136) Total Creatine Kinase 61 U/L (21-232) Total Protein 8.3 g/dL (6.0-8.3) Albumin 4.2 g/dL (3.5-5.0) Lipase 23 U/L (16-77) MDM CC: Vomiting diarrhea x2 days Historian: Patient Comorbidities: Differential diagnosis: Dehydration, gastroenteritis, electrolyte imbalance, surgical pathology, other vital signs: Stable, remained stable in the ER Labs independently ordered and interpreted by me: Normal CBC, normal chemistry, normal liver enzymes, normal CK, normal lipase. CT scan of the abdomen and pelvis (as independently interpreted by ): No free air or major abnormalities. Likely gastroenteritis or enterocolitis. treatment in ER: 1 L LR, 2 mg IV morphine, 4 mg IV Zofran. Also received Protonix and a GI cocktail with the Bentyl. Patient is p.o. tolerant, no clinical signs of dehydration. No surgical pathology. Does not make SIRS or sepsis criteria. Likely a gastroenteritis with mild dehydration. We will DC with ondansetron recommend PCP follow up. REASON: Abdominal Pain ORDERING PHYSICIAN: SANDER WALLACE DO PROCEDURE: ABD PEL W - CT ABDOMEN/PELVIS W/CONTRAST CT ABDOMEN/PELVIS W/CONTRAST HISTORY: Epigastric pain COMPARISON: 10/17/2017 TECHNIQUE: Multiple sequential axial images of the abdomen and pelvis were obtained from the dome of the diaphragm through symphysis pubis. Patient was given 75 cc of Omnipaque through intravenous route. Oral contrast was not given. FINDINGS: No pleural effusion is seen bilaterally. There is no evidence of parenchymal disease or pulmonary nodule of the visualized lower lungs. Degenerative changes of the thoracolumbar spine are present. The heart is not enlarged. Liver measures 15 cm. Postcholecystectomy changes are seen. There is right renal cyst measuring 14 mm. There is fluid-filled small bowel loops and colon may be related to enterocolitis. The liver, spleen, adrenal glands and pancreas are unremarkable. There is no evidence of hydronephrosis bilaterally. No evidence of renal stone is seen. Fecal material is seen in the colon. There are normal size retroperitoneal and mesenteric lymph nodes. No ascites is seen. Appendix is not well seen limiting evaluation. Clinical correlation is recommended. Pelvic sidewalls are symmetric bilaterally. Bladder is well distended without wall thickening. IMPRESSION: 1. Fluid-filled small bowel loops and colon may be related to enterocolitis. No ascites is seen. ED Course Orders Procedure Category Date Status Time Cbc With Differential LAB 07/10/24 Complete 15:56 Urinalysis Profile LAB 07/10/24 Logged 15:56 Ct Abdomen/Pelvis CT 07/10/24 Resulted W/Contrast 15:56 Lactated Ringers PHA 07/10/24 Complete 1000ml (Lactated 16:00 Morphine 2mg Syg PHA 07/10/24 Complete (Morphine 2mg Syg) 16:00 Ondansetron 4mg Inj PHA 07/10/24 Complete (Zofran 4mg Inj) 16:00 Creatine Kinase, Total LAB 07/10/24 Complete 15:56 Lipase LAB 07/10/24 Complete 15:56 Basic Metabolic Panel LAB 07/10/24 Complete 15:56 Hepatic Function Panel LAB 07/10/24 Complete 16:23 Iohexol (Omnipaque) PHA 07/10/24 Complete 16:30 Pantoprazole 40mg Inj PHA 07/10/24 Complete (Protonix 40mg Inj 17:00 Mag/Alum/Simeth 30ml PHA 07/10/24 Complete (Maalox Plus 30ml) 17:00 Lidocaine Hcl 2% PHA 07/10/24 Complete Viscous (Lidocaine Hcl 17:00 Dicyclomine Hcl PHA 12/19/24 Complete (Bentyl 10mg/5ml 17:00 Current Medications Medications (Trade) Dose Ordered Sig/Anjali Route PRN Reason Start Time Stop Time Status Last Admin Dose Admin Al Hydroxide/Mg Hydroxide (MAALox PLUS 30ML) 30 ml ONCE ONCE PO 07/10/24 17:00 07/10/24 17:01 DC 07/10/24 17:14 Dicyclomine HCl (Bentyl 10mg/5ml Syrup) 10 mg ONCE ONCE PO 07/10/24 17:00 07/10/24 17:01 DC 07/10/24 17:14 Iohexol (Omnipaque) 75 ml STK-MED ONCE IV 07/10/24 16:30 07/10/24 16:30 DC Lactated Ringer's 1,000 ml @ 0 mls/hr ONCE ONCE IV 07/10/24 16:00 07/10/24 16:01 DC 07/10/24 16:04 Lidocaine HCl (Lidocaine HCl 2% Viscous) 10 ml ONCE ONCE PO 07/10/24 17:00 07/10/24 17:01 DC 07/10/24 17:14 Morphine Sulfate (morPHINE 2MG SYG) 2 mg ONCE ONCE IVP 07/10/24 16:00 07/10/24 16:01 DC 07/10/24 16:04 Ondansetron HCl (zoFRAN 4MG INJ) 4 mg ONCE ONCE IVP 07/10/24 16:00 07/10/24 16:01 DC 07/10/24 16:04 Pantoprazole Sodium (PROTonix 40MG INJ) 40 mg ONCE ONCE IVP 07/10/24 17:00 07/10/24 17:01 DC 07/10/24 17:13 Vital Signs Date Time Temp Pulse Resp B/P (MAP) Pulse Ox O2 Delivery O2 Flow Rate FiO2 07/10/24 17:25 72 18 141/70 97 Room Air* 0 21 07/10/24 16:09 98.2 74 20 146/76 99 Room Air* 0 21 07/10/24 15:45 98.8 84 20 132/65 98 Room Air 0 DX & DISP Disposition: Discharge Departure Impression: Primary Impression: Acute gastroenteritis Additional Impression: Dehydration Condition: Stable Scripts Ondansetron (Ondansetron Odt) 4 Mg Tab.rapdis 1 TAB PO Q6HPRN PRN for nausea/vomiting for 3 Days, #15 TAB 0 Refills Prov: SANDER WALLACE DO 07/10/24 Additional Instructions: Your symptoms are consistent with gastroenteritis. This is often a stomach virus that will clear on its own and does not require antibiotics. It causes nausea vomiting and diarrhea. The CT scan of your abdomen and pelvis is consistent with gastroenteritis. Your lab work (CBC, BMP, liver function tests, lipase, CK) is stable. You received IV fluids, IV morphine, GI cocktail. I have prescribed ondansetron dissolvable tab. You can take this up to 3 times a day to prevent vomiting. Be sure to stay hydrated. Drink plenty of liquids such as water, Pedialyte, Gatorade, and broths. Start with a bland food diet such as the brat diet (bananas, rice, applesauce, toast). Advance your diet as tolerated after this. Avoid spicy, fatty, and fried foods. You can take [id number] Tylenol (1000 mg) or ibuprofen (600 mg) as needed for pain or discomfort. Rest for the next day or two to allow your body time to heal p.o. Please return to the emergency department if you have any persistent vomiting, severe abdominal pain, blood in his stool, high fevers, or any other concerning symptom. Otherwise I recommend he follow up with your primary doctor in two days or so for re-evaluation. Referrals: MAHOGANY OROZCO MD (PCP) SANDER WALLACE DO Jul 10, 2024 16:40
[2024-07-10 16:59] LABS: ALBUMIN 4.2 g/dL (3.5-5.0); BILIRUBIN,DIRECT 0.1 mg/dL (0.0-0.3); BILIRUBIN,TOTAL 0.5 mg/dL (0.2-1.0); TOTAL PROTEIN, SERUM 8.3 g/dL (6.0-8.3)
--- NOTE | 2024-07-10 17:11 | HMCIMG ---
CT ABDOMEN/PELVIS W/CONTRAST HISTORY: Epigastric pain COMPARISON: 10/17/2017 TECHNIQUE: Multiple sequential axial images of the abdomen and pelvis were obtained from the dome of the diaphragm through symphysis pubis. Patient was given 75 cc of Omnipaque through intravenous route. Oral contrast was not given. FINDINGS: No pleural effusion is seen bilaterally. There is no evidence of parenchymal disease or pulmonary nodule of the visualized lower lungs. Degenerative changes of the thoracolumbar spine are present. The heart is not enlarged. Liver measures 15 cm. Postcholecystectomy changes are seen. There is right renal cyst measuring 14 mm. There is fluid-filled small bowel loops and colon may be related to enterocolitis. The liver, spleen, adrenal glands and pancreas are unremarkable. There is no evidence of hydronephrosis bilaterally. No evidence of renal stone is seen. Fecal material is seen in the colon. There are normal size retroperitoneal and mesenteric lymph nodes. No ascites is seen. Appendix is not well seen limiting evaluation. Clinical correlation is recommended. Pelvic sidewalls are symmetric bilaterally. Bladder is well distended without wall thickening. IMPRESSION: 1. Fluid-filled small bowel loops and colon may be related to enterocolitis. No ascites is seen. CT was performed with one or more following dose reduction techniques: automated exposure control, adjustment of the mA and kv according to patient's size, or use of a iterative reconstruction technique.
[2024-07-10] MEDS: PANTOPrazole 40 MG/VIAL IVP ONE (17:13)
[2024-07-10] MEDS: MAG/ALUM/SIMETH 30 ML UDCUP PO ONE (17:14)
[2024-07-10] MEDS: LIDOCAINE HCL 2% VISCOUS 15 ML UDCUP PO ONE (17:14)
[2024-07-10] MEDS: DICYCLOMINE HCL 10 MG/5 ML ML PO ONE (17:14)
[2024-07-10 17:25] VITALS: BP 141/70; PULSE 72; RESP 18; O2SAT 97
[2024-07-10] MEDS ORDERED: ONDA-243 PO (17:30)
[2024-07-10 17:52] LABS: APPEARANCE,URINE CLEAR (CLEAR); BILIRUBIN,URINE NEGATIVE (NEGATIVE); COLOR,URINE COLORLESS (YELLOW); GLUCOSE, URINE (UA) NEGATIVE (NEGATIVE); KETONES,URINE NEGATIVE (NEGATIVE); LEUKOCYTE ESTERASE ,URINE NEGATIVE Leu/uL (NEGATIVE); NITRATE,URINE NEGATIVE (NEGATIVE); OCCULT BLOOD,URINE NEGATIVE (NEGATIVE); PH,URINE 6.5 (5.0-8.0); PROTEIN,URINE NEGATIVE (NEGATIVE); UROBILINOGEN,URINE 0.2 mg/dL (0.2-1.0)
[2024-07-10 17:53] LABS: ADD UA MICROSCOPIC YES
[2024-07-10 17:54] LABS: BACTERIA,URINE RARE /HPF (None Seen); MUCUS,URINE RARE LPF (None Seen); RBC,URINE 0-1 /HPF (0-1); SQUAMOUS EPITHELIAL CELL,UR FEW /HPF (0-2); WBC,URINE 0-1 /HPF (0-1)
== END 2024-07-10 17:49 | disposition home or self-care (01) ==
LOC: EDH 15:44
DX: K52.9 Noninfective gastroenteritis and colitis, unspecified (principal); E86.0 Dehydration; I10 Essential (primary) hypertension; Z79.1 Long term (current) use of non-steroidal anti-inflammatories (NSAID); Z79.899 Other long term (current) drug therapy; Z90.49 Acquired absence of other specified parts of digestive tract
CPT/HCPCS: 99285; 74177; 96374; 96375; 96361; 82550; 80076; 80048; 83690; 85025; 81001; 36415; J7120; J2270; J2405; J2470; Q9967

== ENCOUNTER 2024-12-01 18:04 | Emergency (ER) | payer OTHER, MEDICARE ==
[~2024-12-01] VITALS: Ht 149.9 cm; Wt 54.4 kg
--- NOTE | 2024-12-01 18:36 | ERN ---
ED Note History of Present Illness Stated Complaint: ABDOMINAL PAIN Chief Complaint: Abdominal Pain Time Seen by MD: 18:06 Time Seen by Midlevel: 18:06 Dictation: The patient is a 59-year-old female with a history of hypertension, appendectomy who presents to the emergency department with complaints of epigastric abdominal pain associated with nausea nonbloody vomiting, nonbloody diarrhea, chills onset three days ago. Allergies: Coded Allergies: No Known Allergies (Unverified Allergy, Unknown, 11/25/19) Home Meds Active Scripts Ondansetron (Ondansetron Odt) 4 Mg Tab.rapdis, 1 TAB PO Q6HPRN PRN for nausea/vomiting for 3 Days, #15 TAB 0 Refills Prov:SANDER WALLACE DO 07/10/24 Ondansetron (Ondansetron Odt) 4 Mg Tab.rapdis, 4 MG PO TID PRN for NAUSEA, #30 TAB 0 Refills Prov:JASSON DIETRICH MD 12/24/22 Famotidine (Pepcid) 20 Mg Tablet, 20 MG PO DAILY, #15 TAB 0 Refills Prov:JASSON DIETRICH MD 12/24/22 Ibuprofen (Motrin/Advil) 800 Mg Tab, 800 MG PO TID, #30 TAB Prov:CASPER BEAVERS MD 01/30/22 Potassium Chloride (K-Dur/Klor-Con) 10 Meq Ertab, 10 MEQ PO DAILY for 5 Days, #5 TAB.EC Prov:KELLIE MG 12/03/21 Reported Medications Tramadol Hcl (Tramadol HCl) 50 Mg Tablet, 50 MG PO BID, TAB 11/25/19 Citalopram Hydrobromide (Celexa) 20 Mg Tablet, 20 MG PO HS, TAB 11/25/19 [Vitamin D] No Conflict Check, 44123 UNIT PO QWEEK 11/25/19 Alprazolam (Alprazolam) 1 Mg Tab.rapdis, 1 MG PO DAILY, TAB 11/25/19 Losartan Potassium (Losartan Potassium) 25 Mg Tablet, 25 MG PO DAILY, TAB 11/25/19 Past Medical History Past Medical History: Hypertension Surgical History: Appendectomy Surgical History Other: cataract surgery on October 24, 2022 Family History: Negative Social History: Negative, Lives with family RN Note Reviewed/Agreed w/PFSH: Yes Review of System Dictation Constitutional: Negative for fever,chills, and weight loss Eyes: Negative for injury, pain,redness, and discharge ENT: Negative for injury,pain or swelling Cardiovascular: Negative for chest pain, palpitations, and edema Respiratory: Negative for shortness of breath, cough, and wheezing, Abdomen/GI: Negative for constipation positive for abdominal pain, nausea, vomiting, diarrhea Back: Negative for injury and pain : Negative for injury, bleeding and discharge MS/Extremity: Negative for injury and deformity Skin: Negative for rash, and discoloration Neuro: Negative for headache, weakness, numbness, tingling, and seizure Psych: Negative for suicide ideation, homicidal ideation, and hallucinations Initial Vital Sign VS Vital Signs Date Time Temp Pulse Resp B/P (MAP) Pulse Ox O2 Delivery O2 Flow Rate FiO2 12/01/24 18:06 97.9 71 20 150/77 97 0 12/01/24 19:08 Room Air* 21 Physical Exam Dictation Vital Signs reviewed General Appearance: Alert, oriented x 3, no acute distress, well developed, nourished. Head and Face: non-traumatic. Eyes: PERRL, pink conjunctivas, eyelid no trauma, anterior chamber with arcus senilis. Ears: Pinnas intact and no signs of trauma or erythema ear canals clear and no discharge TM no erythema Nose: No discharge, no bleeding. Oropharynx: Mouth normal, tongue pink. pharynx clear,no erythema, tonsils no exudates, no abscesses noted, mucous membrane moist Neck: Supple, non-tender, no thyromegaly, no masses, no JVD, no bruits Breast:Deferred Chest:No tenderness, no crepitus, no paradoxical movement, no retractions Lungs:Clear, well-ventilated, symmetric, no rales, no wheezing, no rhonchi, no stridor, good breath sounds bilaterally Heart: Regular rate, regular rhythm, no murmur, no gallops Vascular: no peripheral edema, Abdomen: Soft, positive bowel sounds, nondistended, no guarding, nontender, no rebound, no masses no hepatomegaly, no splenomegaly, no Carcamo's sign, no hernias. Rectal: Deferred Genital: Deferred Neurological: Normal speech, motor function intact, sensory function intact Musculoskeletal: Neck nontender, full range of motion, back nontender, full range of motion, Extremities: nontender, full range of motion Skin: Color pink, dry, no turgor, no rash, no lacerations, no abrasions, no contusions. Lymphatic: Deferred Results (Laboratory/Radiology) Laboratory/Radiology Laboratory Tests Test 12/01/24 19:26 12/01/24 20:40 White Blood Count 8.3 K/uL (4.8-10.8) Red Blood Count 4.10 MIL/uL (4.00-5.50) Hemoglobin 12.3 g/dL (12.0-16.0) Hematocrit 37.1 % (36-48) Mean Corpuscular Volume 90.5 fL (79-99) Mean Corpuscular Hemoglobin 30.0 pg (27.0-33.0) Mean Corpuscular Hemoglobin Concent 33.2 g/dL (32.0-36.0) Red Cell Distribution Width 13.0 % (11.0-15.5) Platelet Count 208 K/uL (130-400) Mean Platelet Volume 11.1 fL (7.5-10.5) H Immature Granulocyte % (Auto) 0.5 % (0-1) Neutrophils (%) (Auto) 52.8 % (40.0-77.0) Lymphocytes (%) (Auto) 37.2 % (21.0-51.0) Monocytes (%) (Auto) 7.7 % (3.0-13.0) Eosinophils (%) (Auto) 1.3 % (0.0-8.0) Basophils (%) (Auto) 0.5 % (0.0-5.0) Neutrophils # (Auto) 4.4 K/uL (1.8-7.7) Lymphocytes # (Auto) 3.1 K/uL (1.0-4.8) Monocytes # (Auto) 0.6 K/uL (0.1-1.0) Eosinophils # (Auto) 0.11 K/uL (0.00-0.70) Basophils # (Auto) 0.04 K/uL (0.00-0.20) Absolute Immature Granulocyte (auto 0.04 K/uL (0-1) Nucleated Red Blood Cells 0.0 % (0.0-0.19) Sodium Level 145 mmol/L (136-145) Potassium Level 3.2 mmol/L (3.5-5.1) L Chloride Level 111 mmol/L (101-111) Carbon Dioxide Level 24 mmol/L (21-32) Blood Urea Nitrogen 10 mg/dL (7-18) Creatinine 0.8 mg/dL (0.5-1.0) Glomerular Filtration Rate Calc 85 mL/min (>90) Random Glucose 87 mg/dL (70-105) Total Calcium 8.1 mg/dL (8.5-10.1) L Total Bilirubin 0.3 mg/dL (0.2-1.0) Direct Bilirubin 0.1 mg/dL (0.0-0.3) Aspartate Amino Transf (AST/SGOT) 20 U/L (10-37) Alanine Aminotransferase (ALT/SGPT) 23 U/L (12-78) Alkaline Phosphatase 82 U/L (50-136) Total Creatine Kinase 41 U/L (21-232) # Troponin I High Sensitivity 24 ng/L (4-50) Total Protein 7.0 g/dL (6.0-8.3) Albumin 3.6 g/dL (3.5-5.0) Lipase 75 U/L (16-77) Urine Color COLORLESS (YELLOW) Urine Appearance CLEAR (CLEAR) Urine pH 7.0 (5.0-8.0) Urine Specific [place] 1.002 (1.001-1.031) Urine Protein NEGATIVE mg/dL (NEGATIVE) Urine Glucose (UA) NEGATIVE mg/dL (NEGATIVE) Urine Ketones NEGATIVE mg/dL (NEGATIVE) Urine Occult Blood NEGATIVE (NEGATIVE) Urine Nitrate NEGATIVE (NEGATIVE) Urine Bilirubin NEGATIVE mg/dL (NEGATIVE) Urine Urobilinogen 0.2 mg/dL (0.2-1.0) Urine Leukocyte Esterase NEGATIVE Awilda/uL Labs Reviewed?: Yes EKG: (+) rhythm (S rhythm) EKG Comment: Date:12/01/2024 Time:2033 Ventricular rate:63 WV interval:138 QRS duration:68 QT/QTc:391 EKG interpretation: Sinus rhythm, left atrial enlargement Reviewed by ED Attending no STEMI ED Course ED Course Orders Procedure Category Date Status Time Cbc With Differential LAB 12/01/24 Complete 18:25 Troponin I High LAB 12/01/24 Complete Sensitivity 18:25 Urinalysis Profile LAB 12/01/24 Complete 18:25 0.9%Nacl 1000ml (Ns PHA 5/12/25 Complete 1000ml) 18:30 Ondansetron 4mg Inj PHA 12/01/24 Complete (Zofran 4mg Inj) 18:30 Pantoprazole 40mg Inj PHA 12/01/24 Complete (Protonix 40mg Inj 18:30 Creatine Kinase, Total LAB 12/01/24 Complete 18:25 Lipase LAB 12/01/24 Complete 18:25 Basic Metabolic Panel LAB 12/01/24 Complete 18:25 Hepatic Function Panel LAB 12/01/24 Complete 18:25 Dicyclomine Hcl PHA 12/01/24 Complete (Bentyl 20mg Inj) 19:30 Potassium Bicarb/Cit PHA 12/01/24 Complete Ac 25meq (K-Lyte Ta 20:30 Current Medications Medications (Trade) Dose Ordered Sig/Anjali Route PRN Reason Start Time Stop Time Status Last Admin Dose Admin Dicyclomine HCl (Bentyl 20mg Inj) 20 mg ONCE ONCE IM 12/01/24 19:30 12/01/24 19:26 DC Ondansetron HCl (zoFRAN 4MG INJ) 4 mg ONCE ONCE IVP 12/01/24 18:30 12/01/24 18:31 DC 12/01/24 18:40 Pantoprazole Sodium (PROTonix 40MG INJ) 40 mg ONCE ONCE IVP 12/01/24 18:30 12/01/24 18:31 DC 12/01/24 18:40 Potassium Bicarbonate (K-Lyte Tablet Eff 25 Meq Tablet.eff) 25 meq ONCE ONCE PO 12/01/24 20:30 12/01/24 20:33 DC 12/01/24 20:43 Sodium Chloride 1,000 ml @ 0 mls/hr ONCE ONCE IV 12/01/24 18:30 12/01/24 18:31 DC 12/01/24 18:40 Vital Signs Date Time Temp Pulse Resp B/P (MAP) Pulse Ox O2 Delivery O2 Flow Rate FiO2 12/01/24 20:28 97.9 83 18 118/56 98 Room Air* 0 21 12/01/24 19:08 97 18 164/69 100 Room Air* 0 21 12/01/24 18:06 97.9 71 20 150/77 97 0 Medical Decision Making MDM The patient is a 59-year-old female with a history of hypertension, appendectomy who presents to the emergency department with complaints of epigastric abdominal pain associated with nausea nonbloody vomiting, nonbloody diarrhea, chills onset three days ago. CBC showed no leukocytosis, no anemia, chemistry showed mild hypokalemia, creatinine of 0.8, GFR of 85, negative troponin, negative lipase, normal liver enzymes. Urinalysis unremarkable. Patient reports feeling better after treatment. Patient continues with a nontender abdomen to palpation. We will be discharged with anti emetics and diagnosed with gastroenteritis. Patient in no acute distress, nontoxic appearance, stable vital signs. Differential diagnosis: Gastroenteritis, gastritis, dehydration, electrolyte imbalance Need for hospitalization: Patient does not meet criteria for hospitalization. There are no social concerns with this patient. DX & DISP Disposition: Discharge Departure Impression: Primary Impression: Acute gastroenteritis Additional Impression: Hypokalemia Condition: Stable Scripts Dicyclomine HCl (Bentyl) 20 Mg Tab 1 TAB PO TID for irritable bowel symptoms for 10 Days, #30 TAB 0 Refills Prov: HERMANN GROSS FURNACE PUNCHER 12/01/24 Ondansetron (Ondansetron Odt) 4 Mg Tab.rapdis 4 MG PO Q6HPRN PRN for nausea, #16 TAB 0 Refills Prov: GROSSHERMANN FURNACE PUNCHER 12/01/24 Additional Instructions: Please continue oral hydration at home. Avoid any spicy foods or foods that exacerbate her symptoms. You may started diet with bland foods such as bananas rice applesauce and toast. If symptoms worsen please return to ER. FOLLOW-UP WITH PRIMARY CARE PROVIDER IN 1 TO 2 DAYS. TAKE MEDICATIONS DIRECTED HERE IN THE EMERGENCY ROOM. OKAY TO CONTINUE HOME MEDICATIONS UNLESS OTHERWISE DISCUSSED DURING YOUR VISIT IN THE EMERGENCY ROOM TODAY. RETURN TO YOUR NEAREST EMERGENCY ROOM IF SYMPTOMS WORSEN OR IF THERE IS NO IMPROVEMENT. CALL 911 IF YOU NEED IMMEDIATE ASSISTANCE. TAKE TYLENOL OR MOTRIN [id number] NEEDED AND IF NO CONTRAINDICATIONS ARE PRESENT. INCREASE ORAL HYDRATION. A WOUND CULTURE OR URINE CULTURE WAS ORDERED HERE IN THE EMERGENCY ROOM DEPARTMENT PLEASE FOLLOW-UP WITH PRIMARY CARE PROVIDER AND ADVISE THEM TO GET REPEAT PORTS FROM OUR FACILITY. IF YOU HAD ANY JOAN WRAP/SPLINTS TH AT WERE APPLIED HERE, PLEASE DO NOT REMOVE THEM UNTIL YOU SEE YOUR PRIMARY CARE OR SPECIALTY. Referrals: MAHOGANY OROZCO MD (PCP) Time of Disposition: 21:01 I have reviewed the case, and I agree with, Diagnosis and Plan HERMANN GROSS [facility] December 01, 2024 18:36
[2024-12-01] MEDS: PANTOPrazole 40 MG/VIAL IVP ONE (18:40)
[2024-12-01] MEDS: ondanSETRON 4MG INJ IVP ONE (18:40)
[2024-12-01] MEDS: 0.9%NACL 1000ML 1,000 ML IV ONE (18:40)
[2024-12-01] MEDS ORDERED: DICYCLOMINE 20MG (10MG/ML) AMP IM ONE (19:30)
[2024-12-01 19:32] LABS: BASOPHILS # (AUTO) 0.04 K/uL (0.00-0.20); BASOPHILS % (AUTO) 0.5 % (0.0-5.0); EOSINOPHILS # (AUTO) 0.11 K/uL (0.00-0.70); EOSINOPHILS % (AUTO) 1.3 % (0.0-8.0); HEMATOCRIT 37.1 % (36-48); IMMATURE GRANULOCYTE ABSOLUTE 0.04 K/uL (0-1); LYMPHOCYTES # (AUTO) 3.1 K/uL (1.0-4.8); LYMPHOCYTES % (AUTO) 37.2 % (21.0-51.0); MEAN CORPUSCULAR HGB CONC 33.2 g/dL (32.0-36.0); MEAN CORPUSCULAR VOLUME 90.5 fL (79-99); MONOCYTES # (AUTO) 0.6 K/uL (0.1-1.0); MONOCYTES % (AUTO) 7.7 % (3.0-13.0); NEUTROPHILS # (AUTO) 4.4 K/uL (1.8-7.7); NEUTROPHILS % (AUTO) 52.8 % (40.0-77.0); PLATELET COUNT (AUTO) 208 K/uL (130-400); WHITE BLOOD COUNT (AUTO) 8.3 K/uL (4.8-10.8)
[2024-12-01 19:41] LABS: CREATININE 0.8 mg/dL (0.5-1.0); POTASSIUM 3.2 mmol/L (3.5-5.1)
[2024-12-01 19:50] LABS: ALBUMIN 3.6 g/dL (3.5-5.0); BILIRUBIN,DIRECT 0.1 mg/dL (0.0-0.3); BILIRUBIN,TOTAL 0.3 mg/dL (0.2-1.0)
[2024-12-01] MEDS: PoTASSium BIcarbonate/CIT AC 25 MEQ TABLET.EFF PO ONE (20:43)
[2024-12-01 20:47] LABS: APPEARANCE,URINE CLEAR (CLEAR); BILIRUBIN,URINE NEGATIVE (NEGATIVE); COLOR,URINE COLORLESS (YELLOW); GLUCOSE, URINE (UA) NEGATIVE (NEGATIVE); KETONES,URINE NEGATIVE (NEGATIVE); LEUKOCYTE ESTERASE ,URINE NEGATIVE Leu/uL (NEGATIVE); NITRATE,URINE NEGATIVE (NEGATIVE); OCCULT BLOOD,URINE NEGATIVE (NEGATIVE); PROTEIN,URINE NEGATIVE (NEGATIVE); UROBILINOGEN,URINE 0.2 mg/dL (0.2-1.0)
[2024-12-01 20:54] LABS: ADD UA MICROSCOPIC NO
[2024-12-01] MEDS ORDERED: DICY20TA2 PO (21:02)
[2024-12-01] MEDS ORDERED: ONDA-243 PO (21:02)
[2024-12-01 21:10] VITALS: BP 117/53; PULSE 65; RESP 18; TEMP 98.1; O2SAT 98
--- NOTE | 2024-12-02 10:12 | EKG ---
[facility] Test Date: 2024-12-01 Test Time: 20:34:54 Pat Name: RYLEY NGUYEN Department: [facility] Room: Gender: F Md Psychiatry: [id number] : 1965 Requested By: HERMANN GROSS Order Number: [id number] Reading MD: Jonas Melvin Measurements Intervals [place] Rate: 63 P: 54 IA: 138 QRS: 35 QRSD: 68 T: 33 QT: 391 QTc: 402 Interpretive Statements Sinus rhythm Probable left atrial enlargement Compared to ECG 11/07/2023 03:03:51 No significant changes Electronically Signed On 12-02-2024 16:18:23 CDT by Jonas Melvin Please click the below link to view image of tracing.
== END 2024-12-01 21:15 | disposition home or self-care (01) ==
LOC: EDH 18:04
DX: K52.9 Noninfective gastroenteritis and colitis, unspecified (principal); E87.6 Hypokalemia; I10 Essential (primary) hypertension; Z79.1 Long term (current) use of non-steroidal anti-inflammatories (NSAID); Z79.899 Other long term (current) drug therapy; Z90.49 Acquired absence of other specified parts of digestive tract
CPT/HCPCS: 99284; 96374; 96361; 96375; 82550; 80076; 84484; 80048; 83690; 85025; 81003; 36415; 93005; J7030; J2405; J2470

== ENCOUNTER → 2025-01-26 | Outpatient (CLI) | payer OTHER, MEDICARE ==
[~2025-01-26] MED LIST changes: +DICY20TA2 PO
== END | disposition home or self-care (01) ==
LOC: RAH 15:29
PROVIDERS: ATTEND Family Medicine
DX: Z12.31 Encounter for screening mammogram for malignant neoplasm of breast (principal)
CPT/HCPCS: 77067

== ENCOUNTER 2025-02-05 21:33 | Emergency (ER) | payer OTHER, MEDICAID ==
[~2025-02-05] VITALS: Ht 152.4 cm; Wt 54.4 kg
[2025-02-05 22:07] LABS: IMMATURE GRANULOCYTE ABSOLUTE 0.04 K/uL (0-1); NUCLEATED RED BLOOD CELLS 0.0 % (0.0-0.19); PLATELET COUNT (AUTO) 238 K/uL (130-400); RED BLOOD CELL COUNT(AUTO) 4.05 MIL/uL (4.00-5.50); RED CELL DISTRIBUTION WIDTH 13.2 % (11.0-15.5); WHITE BLOOD COUNT (AUTO) 10.9 K/uL (4.8-10.8)
[2025-02-05 22:08] LABS: ADD UA MICROSCOPIC YES; APPEARANCE,URINE CLEAR (CLEAR); GLUCOSE, URINE (UA) NEGATIVE (NEGATIVE); LEUKOCYTE ESTERASE ,URINE NEGATIVE Leu/uL (NEGATIVE); NITRATE,URINE NEGATIVE (NEGATIVE); OCCULT BLOOD,URINE +- (TRACE) (NEGATIVE)
[2025-02-05 22:10] LABS: SQUAMOUS EPITHELIAL CELL,UR RARE /HPF (0-2)
[2025-02-05 22:18] LABS: CREATININE 0.5 mg/dL (0.5-1.0); GLOMERULAR FILTR. RATE CALC 109.0 mL/min (>90); GLUCOSE,RANDOM 99.0 mg/dL (70-105); SODIUM SERUM 141.0 mmol/L (136-145); UREA NITROGEN, BLOOD 17.0 mg/dL (7-18)
[2025-02-05 22:22] LABS: ASPARTATE AMINOTRANSFERASE 12.0 U/L (10-37); CREATINE KINASE, TOTAL 43.0 U/L (21-232); TOTAL PROTEIN, SERUM 7.4 g/dL (6.0-8.3)
[2025-02-05] MEDS ORDERED: IOHEXOL 350 MG/ML 100ML INFUS..BTL IV ONE (22:35)
--- NOTE | 2025-02-05 22:41 | ERN ---
ED Note History of Present Illness Stated Complaint: ABD PAIN Chief Complaint: Abdominal Pain Time Seen by MD: 21:36 Time Seen by Midlevel: 21:36 Dictation: The patient is a 59-year-old female with a history of hypertension, appendectomy who presents to the emergency department complaints of left upper quadrant abdominal pain onset a 8:00 p.m. patient reports she has been having this pain on and off for a month and has been following up with her doctor but reports they have not been able to find a cause. Patient denies any nausea or vomiting, denies any fevers or constipation, denies diarrhea or hematuria. Allergies: Coded Allergies: No Known Allergies (Unverified Allergy, Unknown, 11/25/19) Home Meds Active Scripts Dicyclomine HCl (Bentyl) 20 Mg Tab, 1 TAB PO TID for irritable bowel symptoms for 10 Days, #30 TAB 0 Refills Prov:HERMANN GROSS [facility] 12/01/24 Ondansetron (Ondansetron Odt) 4 Mg Tab.rapdis, 4 MG PO Q6HPRN PRN for nausea, #16 TAB 0 Refills Prov:HERMANN GROSS HOT DIP GALVANIZER 12/01/24 Ondansetron (Ondansetron Odt) 4 Mg Tab.rapdis, 1 TAB PO Q6HPRN PRN for nausea/vomiting for 3 Days, #15 TAB 0 Refills Prov:SANDER WALLACE DO 07/10/24 Ondansetron (Ondansetron Odt) 4 Mg Tab.rapdis, 4 MG PO TID PRN for NAUSEA, #30 TAB 0 Refills Prov:JASSON DIETRICH MD 12/24/22 Famotidine (Pepcid) 20 Mg Tablet, 20 MG PO DAILY, #15 TAB 0 Refills Prov:JASSON DIETRICH MD 12/24/22 Ibuprofen (Motrin/Advil) 800 Mg Tab, 800 MG PO TID, #30 TAB Prov:CASPER BEAVERS MD 01/30/22 Potassium Chloride (K-Dur/Klor-Con) 10 Meq Ertab, 10 MEQ PO DAILY for 5 Days, #5 TAB.EC Prov:KELLIE MG 12/03/21 Reported Medications Tramadol Hcl (Tramadol HCl) 50 Mg Tablet, 50 MG PO BID, TAB 11/25/19 Citalopram Hydrobromide (Celexa) 20 Mg Tablet, 20 MG PO HS, TAB 11/25/19 [Vitamin D] No Conflict Check, 05917 UNIT PO QWEEK 11/25/19 Alprazolam (Alprazolam) 1 Mg Tab.rapdis, 1 MG PO DAILY, TAB 11/25/19 Losartan Potassium (Losartan Potassium) 25 Mg Tablet, 25 MG PO DAILY, TAB 11/25/19 Past Medical History Past Medical History: Hypertension Surgical History: Appendectomy Surgical History Other: R SHOULDER Family History: Negative Social History: Negative, Lives with family RN Note Reviewed/Agreed w/PFSH: Yes Review of System Dictation Constitutional: Negative for fever,chills, and weight loss Eyes: Negative for injury, pain,redness, and discharge ENT: Negative for injury,pain or swelling Cardiovascular: Negative for chest pain, palpitations, and edema Respiratory: Negative for shortness of breath, cough, and wheezing, Abdomen/GI: Negative for nausea, vomiting, diarrhea, and constipation positive for abdominal pain Back: Negative for injury and pain : Negative for injury, bleeding and discharge MS/Extremity: Negative for injury and deformity Skin: Negative for rash, and discoloration Neuro: Negative for headache, weakness, numbness, tingling, and seizure Psych: Negative for suicide ideation, homicidal ideation, and hallucinations Initial Vital Sign VS Vital Signs Date Time Temp Pulse Resp B/P (MAP) Pulse Ox O2 Delivery O2 Flow Rate FiO2 02/05/25 21:37 97.9 71 19 153/74 100 Room Air 0 02/05/25 22:20 21 Physical Exam Dictation Vital Signs reviewed General Appearance: Alert, oriented x 3, no acute distress, well developed, nourished. Head and Face: non-traumatic. Eyes: PERRL, pink conjunctivas, eyelid no trauma, anterior chamber with arcus senilis. Ears: Pinnas intact and no signs of trauma or erythema ear canals clear and no discharge TM no erythema Nose: No discharge, no bleeding. Oropharynx: Mouth normal, tongue pink. pharynx clear,no erythema, tonsils no exudates, no abscesses noted, mucous membrane moist Neck: Supple, non-tender, no thyromegaly, no masses, no JVD, no bruits Breast:Deferred Chest:No tenderness, no crepitus, no paradoxical movement, no retractions Lungs:Clear, well-ventilated, symmetric, no rales, no wheezing, no rhonchi, no stridor, good breath sounds bilaterally Heart: Regular rate, regular rhythm, no murmur, no gallops Vascular: no peripheral edema, Abdomen: Soft, positive bowel sounds, nondistended, no guarding, Left upper quadrant tenderness, no rebound, no masses no hepatomegaly, no splenomegaly, no Carcamo's sign, no hernias. Rectal: Deferred Genital: Deferred Neurological: Normal speech, motor function intact, sensory function intact Musculoskeletal: Neck nontender, full range of motion, back nontender, full range of motion, Extremities: nontender, full range of motion Skin: Color pink, dry, no turgor, no rash, no lacerations, no abrasions, no contusions. Lymphatic: Deferred Results (Laboratory/Radiology) Laboratory/Radiology Laboratory Tests Test 02/05/25 21:53 White Blood Count 10.9 K/uL (4.8-10.8) H Red Blood Count 4.05 MIL/uL (4.00-5.50) Hemoglobin 12.3 g/dL (12.0-16.0) Hematocrit 37.0 % (36-48) Mean Corpuscular Volume 91.4 fL (79-99) Mean Corpuscular Hemoglobin 30.4 pg (27.0-33.0) Mean Corpuscular Hemoglobin Concent 33.2 g/dL (32.0-36.0) Red Cell Distribution Width 13.2 % (11.0-15.5) Platelet Count 238 K/uL (130-400) Mean Platelet Volume 10.0 fL (7.5-10.5) Immature Granulocyte % (Auto) 0.4 % (0-1) Neutrophils (%) (Auto) 57.7 % (40.0-77.0) Lymphocytes (%) (Auto) 31.7 % (21.0-51.0) Monocytes (%) (Auto) 8.8 % (3.0-13.0) Eosinophils (%) (Auto) 0.9 % (0.0-8.0) Basophils (%) (Auto) 0.5 % (0.0-5.0) Neutrophils # (Auto) 6.3 K/uL (1.8-7.7) Lymphocytes # (Auto) 3.5 K/uL (1.0-4.8) Monocytes # (Auto) 1.0 K/uL (0.1-1.0) Eosinophils # (Auto) 0.10 K/uL (0.00-0.70) Basophils # (Auto) 0.05 K/uL (0.00-0.20) Absolute Immature Granulocyte (auto 0.04 K/uL (0-1) Nucleated Red Blood Cells 0.0 % (0.0-0.19) Urine Color COLORLESS (YELLOW) Urine Appearance CLEAR (CLEAR) Urine pH 5.5 (5.0-8.0) Urine Specific [place] 1.011 (1.001-1.031) Urine Protein NEGATIVE mg/dL (NEGATIVE) Urine Glucose (UA) NEGATIVE mg/dL (NEGATIVE) Urine Ketones NEGATIVE mg/dL (NEGATIVE) Urine Occult Blood +- (TRACE) (NEGATIVE) H Urine Nitrate NEGATIVE (NEGATIVE) Urine Bilirubin NEGATIVE mg/dL (NEGATIVE) Urine Urobilinogen 0.2 mg/dL (0.2-1.0) Urine Leukocyte Esterase NEGATIVE Awilda/uL Urine RBC 0-1 /HPF (0-1) Urine WBC 2-5 /HPF (0-1) H Urine Squamous Epithelial Cells RARE /HPF (0-2) Urine Bacteria None /HPF (None Seen) Sodium Level 141 mmol/L (136-145) Potassium Level 3.7 mmol/L (3.5-5.1) Chloride Level 107 mmol/L (101-111) Carbon Dioxide Level 28 mmol/L (21-32) Blood Urea Nitrogen 17 mg/dL (7-18) Creatinine 0.5 mg/dL (0.5-1.0) Glomerular Filtration Rate Calc 109 mL/min (>90) Random Glucose 99 mg/dL (70-105) Total Calcium 9.0 mg/dL (8.5-10.1) Total Bilirubin 0.4 mg/dL (0.2-1.0) Direct Bilirubin 0.1 mg/dL (0.0-0.3) Aspartate Amino Transf (AST/SGOT) 12 U/L (10-37) Alanine Aminotransferase (ALT/SGPT) 22 U/L (12-78) Alkaline Phosphatase 89 U/L (50-136) Total Creatine Kinase 43 U/L (21-232) Troponin I High Sensitivity 13 ng/L (4-50) Total Protein 7.4 g/dL (6.0-8.3) Albumin 3.6 g/dL (3.5-5.0) Lipase 31 U/L (16-77) REASON: Abdominal Pain luq ORDERING PHYSICIAN: HERMANN GROSS PROCEDURE: ABD PEL W - CT ABDOMEN/PELVIS W/CONTRAST EXAM: CT Abdomen and Pelvis with IV contrast CLINICAL HISTORY: Pain in the left upper quadrant. TECHNIQUE: Thin collimated axial CT images of the abdomen and pelvis were obtained, with sagittal and coronal reformatted images also submitted. A CT scan is done according to ALARA (As Low As Reasonably Achievable). COMPARISON: CT scan of the abdomen and pelvis. 07/10/2024. FINDINGS: Unremarkable visualized lung parenchyma. There is no focal abnormality appreciated within the liver, pancreas, spleen, or adrenals. Status post cholecystectomy. There is a 1.3 cm cortical cyst in the interpolar region of the right kidney. Mild fatty liver. There is mild edematous thickening of the gastric wall. No obstruction. The appendix is unremarkable. There is no abnormality within the urinary bladder. Unremarkable reproductive organs. No lymphadenopathy. No free fluid. No pneumoperitoneum. Mild calcific atherosclerotic disease in the abdominal aorta. There is no acute osseous abnormality. IMPRESSIONS: Suspicion of mild gastritis. The remaining findings are stable. Stable Bosniak classification 1 right renal cyst. Stable mild fatty liver. /[facility] Labs Reviewed?: Yes EKG: (+) rhythm (Sinus rhythm) EKG Comment: Date:02/05/2025 Time:0 Ventricular rate:69 UT interval:124 QRS duration:78 QT/QTc:418 EKG interpretation: Sinus rhythm Reviewed by ED Attending no STEMI ED Course ED Course Orders Procedure Category Date Status Time Cbc With Differential LAB 02/05/25 Complete 21:53 Troponin I High LAB 02/05/25 Complete Sensitivity 21:53 Urinalysis Profile LAB 02/05/25 Complete 21:53 12 Lead Ekg Tracing- EKG 02/05/25 Logged Technical 21:53 0.9%Nacl 1000ml (Ns PHA 02/05/25 Complete 1000ml) 22:00 Morphine 4mg Syg PHA 02/05/25 Complete (Morphine 4mg Syg) 22:00 Ondansetron 4mg Inj PHA 02/05/25 Complete (Zofran 4mg Inj) 22:00 Pantoprazole 40mg Inj PHA 02/05/25 Complete (Protonix 40mg Inj 22:00 Creatine Kinase, Total LAB 02/05/25 Complete 21:53 Lipase LAB 02/05/25 Complete 21:53 Basic Metabolic Panel LAB 02/05/25 Complete 21:53 Hepatic Function Panel LAB 02/05/25 Complete 21:53 Ct Abdomen/Pelvis CT 02/05/25 Resulted W/Contrast 21:53 Iohexol (Omnipaque) PHA 02/05/25 Complete 22:35 Current Medications Medications (Trade) Dose Ordered Sig/Anjali Route PRN Reason Start Time Stop Time Status Last Admin Dose Admin Iohexol (Omnipaque) 35,000 mg STK-MED ONCE IV 02/05/25 22:35 02/05/25 22:36 DC Morphine Sulfate (morPHINE 4MG SYG) 4 mg ONCE ONCE IVP 02/05/25 22:00 02/05/25 22:01 DC 02/05/25 23:24 Ondansetron HCl (zoFRAN 4MG INJ) 4 mg ONCE ONCE IVP 02/05/25 22:00 02/05/25 22:01 DC 02/05/25 23:23 Pantoprazole Sodium (PROTonix 40MG INJ) 40 mg ONCE ONCE IVP 02/05/25 22:00 02/05/25 22:01 DC 02/05/25 23:22 Sodium Chloride 1,000 ml @ 0 mls/hr ONCE ONCE IV 02/05/25 22:00 02/05/25 22:01 DC 02/05/25 23:24 Vital Signs Date Time Temp Pulse Resp B/P (MAP) Pulse Ox O2 Delivery O2 Flow Rate FiO2 02/05/25 22:20 97.5 68 17 119/68 98 Room Air* 0 21 02/05/25 21:37 97.9 71 19 153/74 100 Room Air 0 Medical Decision Making MDM The patient is a 59-year-old female with a history of hypertension, appendectomy who presents to the emergency department complaints of left upper quadrant abdominal pain onset a 8:00 p.m. patient reports she has been having this pain on and off for a month and has been following up with her doctor but reports they have not been able to find a cause. Patient denies any nausea or vomiting, denies any fevers or constipation, denies diarrhea or hematuria. CBC showed mild leukocytosis, no anemia, chemistry showed no electrolyte imbalance, normal renal function, negative lipase, negative liver enzymes, urinalysis unremarkable. CT abdomen pelvis showed mild gastritis, right renal cyst. Patient re-evaluated reports improving in pain. On physical exam patient is in no acute distress, stable vital signs. Patient will be discharged to follow up with PCP. Differential diagnosis: Kidney stone, gastroenteritis, constipation, electrolyte imbalance, ACS, gastritis Need for hospitalization: Patient does not meet criteria for hospitalization. There are no social concerns with this patient. DX & DISP Disposition: Discharge Departure Impression: Primary Impression: Gastritis Condition: Stable Scripts Pantoprazole Sodium (Pantoprazole Sodium) 20 Mg Tablet.dr 1 TAB PO DAILY for 30 Days, #30 TAB 0 Refills Prov: HERMANN GROSSP 02/06/25 Additional Instructions: Your labs were unremarkable. Your symptoms are due to gastritis. Avoid any foods that exacerbate your symptoms. Please follow up with your primary doctor in 1-2 days. Take medications as prescribed. If symptoms worsen please return to ER. FOLLOW-UP WITH PRIMARY CARE PROVIDER IN 1 TO 2 DAYS. TAKE MEDICATIONS DIRECTED HERE IN THE EMERGENCY ROOM. OKAY TO CONTINUE HOME MEDICATIONS UNLESS OTHERWISE DISCUSSED DURING YOUR VISIT IN THE EMERGENCY ROOM TODAY. RETURN TO YOUR NEAREST EMERGENCY ROOM IF SYMPTOMS WORSEN OR IF THERE IS NO IMPROVEMENT. CALL 911 IF YOU NEED IMMEDIATE ASSISTANCE. TAKE TYLENOL [id number] NEEDED AND IF NO CONTRAINDICATIONS ARE PRESENT. INCREASE ORAL HYDRATION. A WOUND CULTURE OR URINE CULTURE WAS ORDERED HERE IN THE EMERGENCY ROOM DEPARTMENT PLEASE FOLLOW-UP WITH PRIMARY CARE PROVIDER AND ADVISE THEM TO GET REPEAT PORTS FROM OUR FACILITY. IF YOU HAD ANY JOAN WRAP/SPLINTS THAT WERE APPLIED HERE, PLEASE DO NOT REMOVE THEM UNTIL YOU SEE YOUR PRIMARY CARE OR SPECIALTY. Referrals: MAHOGANY OROZCO MD (PCP) Time of Disposition: 00:36 I have reviewed the case, and I agree with, Diagnosis and Plan HERMANN GROSS [facility] Feb 05, 2025 22:41
[2025-02-05] MEDS: 0.9%NACL 1000ML 1,000 ML IV ONE (23:24)
--- NOTE | 2025-02-06 00:19 | HMCIMG ---
EXAM: CT Abdomen and Pelvis with IV contrast CLINICAL HISTORY: Pain in the left upper quadrant. TECHNIQUE: Thin collimated axial CT images of the abdomen and pelvis were obtained, with sagittal and coronal reformatted images also submitted. A CT scan is done according to ALARA (As Low As Reasonably Achievable). COMPARISON: CT scan of the abdomen and pelvis. 07/10/2024. FINDINGS: Unremarkable visualized lung parenchyma. There is no focal abnormality appreciated within the liver, pancreas, spleen, or adrenals. Status post cholecystectomy. There is a 1.3 cm cortical cyst in the interpolar region of the right kidney. Mild fatty liver. There is mild edematous thickening of the gastric wall. No obstruction. The appendix is unremarkable. There is no abnormality within the urinary bladder. Unremarkable reproductive organs. No lymphadenopathy. No free fluid. No pneumoperitoneum. Mild calcific atherosclerotic disease in the abdominal aorta. There is no acute osseous abnormality. IMPRESSIONS: Suspicion of mild gastritis. The remaining findings are stable. Stable Bosniak classification 1 right renal cyst. Stable mild fatty liver. /[place]
[2025-02-06] MEDS ORDERED: PANT20TA18 PO (00:37)
[2025-02-06 00:49] VITALS: BP 120/78; PULSE 64; RESP 16; TEMP 97.8; O2SAT 99
--- NOTE | 2025-02-06 06:30 | EKG ---
[facility] Test Date: 2025-02-05 Test Time: 22:10:54 Pat Name: RYLEY NGUYEN Department: [facility] Room: Gender: F [employer]: [id number] : 1965 Requested By: HERMANN GROSS Order Number: [id number] Reading MD: Naomie Maldonado Measurements Intervals [place] Rate: 69 P: 49 MO: 124 QRS: 28 QRSD: 78 T: 34 QT: 418 QTc: 449 Interpretive Statements Sinus rhythm Compared to ECG 12/09/2024 16:51:09 No significant changes Electronically Signed On 02-06-2025 07:51:11 CDT by Naomie Maldonado Please click the below link to view image of tracing.
== END 2025-02-06 00:59 | disposition home or self-care (01) ==
LOC: EDH 21:33
DX: K29.70 Gastritis, unspecified, without bleeding (principal); I10 Essential (primary) hypertension; Z79.1 Long term (current) use of non-steroidal anti-inflammatories (NSAID); Z79.899 Other long term (current) drug therapy; Z90.49 Acquired absence of other specified parts of digestive tract
CPT/HCPCS: 99285; 74177; 96374; 96375; 96361; 82550; 80076; 84484; 80048; 83690; 85025; 81001; 36415; 93005; J7030; J2405; J2270; J2470; Q9967